=== PATIENT | male | born 1950 | race Caucasian/White ===

== ENCOUNTER 2020-04-14 05:29 | Inpatient (IN) | payer MEDICARE ==
[2020-04-14] MEDS ORDERED: Lactated Ringers 1,000 ML IV SCH (06:30)
[2020-04-14] MEDS: Nozin Nasal Sanitizer NASBOTH SCH ×2 (06:34→20:59)
[2020-04-14] MEDS ORDERED: Povidone-Iodine 10% Soln 118.25 ML Bottle ONE (06:48)
[2020-04-14] MEDS ORDERED: Propofol 200 MG/20 ML SDV ONE (07:21)
[2020-04-14] MEDS ORDERED: Midazolam 1 MG/ML 2 ML SDV ONE (07:21)
[2020-04-14] MEDS ORDERED: fentaNYL 100 MCG/2 ML SDV ONE (07:21)
[2020-04-14] MEDS ORDERED: ceFAZolin 2 GM in Premix Bag 1 BAG IV ONE (07:30)
[2020-04-14] MEDS ORDERED: Succinylcholine 200 MG/10 ML MDV ONE (08:00)
[2020-04-14] MEDS ORDERED: Glycopyrrolate 0.2 MG/ML 5 ML MDV ONE (08:00)
[2020-04-14] MEDS ORDERED: Dexamethasone 4 MG/ML SDV ONE (08:00)
[2020-04-14] MEDS ORDERED: Rocuronium 50 MG/5 ML Vial ONE (08:00)
[2020-04-14] MEDS ORDERED: Neostigmine Methylsulfate 1 MG/ML 5 ML Syringe ONE (08:00)
[2020-04-14] MEDS ORDERED: Ondansetron 4 MG/2 ML SDV ONE (08:00)
[2020-04-14] MEDS ORDERED: fentaNYL 250 MCG/5 ML SDV ONE (08:11)
[2020-04-14] MEDS ORDERED: Lactated Ringers 1,000 ML ONE (09:50)
[2020-04-14] MEDS ORDERED: Atropine 0.4 MG/ML SDV ONE (10:58)
[2020-04-14] MEDS ORDERED: Acetaminophen 325 MG Tab PO PRN (11:00)
[2020-04-14] MEDS ORDERED: Acetaminophen/HYDROcodone 325-5 MG Tab PO PRN (11:00)
[2020-04-14] MEDS ORDERED: hydrOXYzine HCL 100 MG/2 ML SDV IM ONE (11:16)
[2020-04-14] MEDS: Morphine 2 MG/ML SYRINGE IVPUSH PRN ×2 (12:17→13:21)
[2020-04-14] MEDS: Ketorolac 30 MG/ML SDV IVPUSH SCH ×2 (12:17→19:48)
--- NOTE | 2020-04-14 13:04 | CR ---
Knee 1V or 2V Lt CLINICAL HISTORY: Left total knee FINDINGS: Patient has a total knee arthroplasty. Components appear well seated. There has been previous distal femoral fracture with open reduction. Numerous the fixation plate screws are fractured. This is similar to the study from 2019 Impression: Total knee arthroplasty appears intact Previous femoral fracture with open reduction
[2020-04-14] MEDS: Acetaminophen/oxyCODONE 325-5 MG Tab PO PRN ×2 (13:20→17:22)
[2020-04-14] MEDS ORDERED: Gabapentin 300 MG Cap PO SCH ×2 (14:00→18:00)
[2020-04-14] MEDS ORDERED: CARBIDOPA PO SCH (14:00)
[2020-04-14] MEDS ORDERED: LEVODOPA PO SCH (14:00)
[2020-04-14] MEDS: Docusate Sodium 100 MG Cap PO SCH ×2 (16:21→21:01)
[2020-04-14] MEDS: ceFAZolin 1 GM in Premix Bag 1 BAG IV SCH ×2 (16:21→21:10)
[2020-04-14] MEDS: Sodium Chloride 0.9% 1,000 ML IV SCH (16:23)
[2020-04-14] MEDS ORDERED: Docusate Sodium 100 MG Cap PO SCH (21:00)
[2020-04-14] MEDS: CARBIDOPA PO SCH (21:02)
[2020-04-14] MEDS: LEVODOPA PO SCH (21:02)
[2020-04-14] MEDS: Melatonin 3 MG Tab PO SCH (21:02)
[2020-04-15] MEDS: Sodium Chloride 0.9% 1,000 ML IV SCH (01:20)
[2020-04-15] MEDS: Ketorolac 30 MG/ML SDV IVPUSH SCH ×3 (03:26→22:11)
[2020-04-15] MEDS: ceFAZolin 1 GM in Premix Bag 1 BAG IV SCH (05:27)
[2020-04-15] MEDS: LEVODOPA PO SCH ×5 (05:30→22:14)
[2020-04-15] MEDS: CARBIDOPA PO SCH ×5 (05:30→22:14)
[2020-04-15] MEDS: Acetaminophen/oxyCODONE 325-5 MG Tab PO PRN ×2 (07:42→15:54)
[2020-04-15] MEDS: Gabapentin 300 MG Cap PO SCH ×3 (07:47→22:15)
[2020-04-15] MEDS: Nozin Nasal Sanitizer NASBOTH SCH ×2 (08:59→22:12)
[2020-04-15] MEDS: atorvaSTATin 20 MG Tab PO SCH (09:00)
[2020-04-15] MEDS: Docusate Sodium 100 MG Cap PO SCH ×2 (09:00→22:12)
[2020-04-15] MEDS ORDERED: Pramipexole 0.5 MG Tab PO SCH (09:00)
[2020-04-15] MEDS: Enoxaparin 30 MG/0.3 ML Syringe SUBCUT SCH (09:00)
[2020-04-15] MEDS: buPROPion 100 MG Tab.SR PO SCH (09:01)
[2020-04-15] MEDS: Tamsulosin 0.4 MG Cap.ER PO SCH (09:01)
[2020-04-15] MEDS: PRAMIPEXOLE 1.5 MG PO SCH (09:01)
[2020-04-15] MEDS: Melatonin 3 MG Tab PO SCH (22:13)
[2020-04-16] MEDS: Ketorolac 30 MG/ML SDV IVPUSH SCH (05:33)
[2020-04-16] MEDS: CARBIDOPA PO SCH ×5 (05:37→20:43)
[2020-04-16] MEDS: LEVODOPA PO SCH ×5 (05:37→20:43)
[2020-04-16] MEDS: Gabapentin 300 MG Cap PO SCH ×3 (05:40→22:12)
[2020-04-16] MEDS: PRAMIPEXOLE 1.5 MG PO SCH ×3 (05:41→08:35)
[2020-04-16] MEDS ORDERED: CARBIDOPA PO SCH (06:00)
[2020-04-16] MEDS ORDERED: LEVODOPA PO SCH (06:00)
[2020-04-16] MEDS: Nozin Nasal Sanitizer NASBOTH SCH ×2 (08:28→20:41)
[2020-04-16] MEDS: Docusate Sodium 100 MG Cap PO SCH ×2 (08:29→20:42)
[2020-04-16] MEDS: Enoxaparin 30 MG/0.3 ML Syringe SUBCUT SCH (08:30)
[2020-04-16] MEDS: Tamsulosin 0.4 MG Cap.ER PO SCH (08:30)
[2020-04-16] MEDS: buPROPion 100 MG Tab.SR PO SCH (08:31)
[2020-04-16] MEDS: atorvaSTATin 20 MG Tab PO SCH (08:32)
[2020-04-16] MEDS: Acetaminophen/oxyCODONE 325-5 MG Tab PO PRN ×2 (09:23→16:26)
[2020-04-16] MEDS: Magnesium Hydroxide 400 MG/5 ML Susp 30 ML Cup PO PRN (09:23)
[2020-04-16] MEDS: Melatonin 3 MG Tab PO SCH (20:42)
[2020-04-17] MEDS: Acetaminophen/oxyCODONE 325-5 MG Tab PO PRN ×2 (03:56→09:52)
[2020-04-17] MEDS: LEVODOPA PO SCH ×3 (06:17→10:50)
[2020-04-17] MEDS: CARBIDOPA PO SCH ×3 (06:17→10:50)
[2020-04-17] MEDS: Gabapentin 300 MG Cap PO SCH (06:19)
[2020-04-17] MEDS: PRAMIPEXOLE 1.5 MG PO SCH (09:45)
[2020-04-17] MEDS: Docusate Sodium 100 MG Cap PO SCH (09:46)
[2020-04-17] MEDS: atorvaSTATin 20 MG Tab PO SCH (09:46)
[2020-04-17] MEDS: buPROPion 100 MG Tab.SR PO SCH (09:46)
[2020-04-17] MEDS: Nozin Nasal Sanitizer NASBOTH SCH (09:46)
[2020-04-17] MEDS: Tamsulosin 0.4 MG Cap.ER PO SCH (09:47)
[2020-04-17] MEDS: Magnesium Hydroxide 400 MG/5 ML Susp 30 ML Cup PO PRN (09:52)
[2020-04-17] MEDS: Enoxaparin 30 MG/0.3 ML Syringe SUBCUT SCH (10:50)
--- NOTE | 2020-04-23 19:37 | OR ---
DATE OF PROCEDURE: 04/14/2020 SURGEON: Yao Addison MD PREOPERATIVE DIAGNOSES: 1. Severe posttraumatic osteoarthritis, left knee. 2. Retained hardware, left femur. POSTOPERATIVE DIAGNOSES: 1. Severe posttraumatic osteoarthritis, left knee. 2. Retained hardware, left femur. PROCEDURES: Left total knee arthroplasty utilizing Pool Person[employer] components with a size 11 femur, H tibia, 14 mm CPS poly and a 38 mm patella. ANESTHESIA: Spinal with sedation. INDICATIONS: Mr. Lindo is a very pleasant 70-year-old gentleman with a history of severe trauma to his left leg and pelvis. 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 He has a blade plate in place along with multiple broken screws in the shaft of the femur. This results in blocking the intramedullary canal. He has severe posttraumatic arthritis with varus deformity and flexion contracture. Due to the hardware in place and inability to use the standard intramedullary guide, Pool PSI guides were created. These were used in making the initial cuts on the femur and tibia. DESCRIPTION OF PROCEDURE: After adequate anesthesia was obtained, the patient placed supine with a tourniquet about the left upper leg. Leg was prepped and draped in a sterile fashion. Leg was exsanguinated and tourniquet inflated to 300 mmHg pressure. Anterior incision was made incorporating a previous scar. Was taken down through the subcutaneous tissues and a medial parapatellar arthrotomy was performed. Soft tissues were cleared from the superior aspect of the femur to allow placement of the distal femoral cutting guide. The patella was partially everted. Posterior aspect was resected with an oscillating saw. This allowed easier mobilization. Once the PSI cutting jig could be placed securely in position, 2 pins were placed anterior to posterior, and 2 drill holes were then made in the distal femur through the appropriate guides. Distal cutting jig was then placed and the distal femur was cut. The guides for the 4-in-1 cutting jig was then placed through the previously drilled holes. This resulted in cutting jig too far anterior with no anterior bone resection. Additional drill holes were then placed more posterior and the distal femur jig was downsized from a 12 to an 11. This resulted in resection of the lateral flare of the trochlea to the midportion of the groove; however, no resection was noted medially. The remaining posterior and chamfer cuts were made. Drill holes were placed for the trial. Significant bone was removed from the distal femur as well as the posterior condyles. This extended up into some of the deformity and malunion of the posterior femur. The soft tissues were then cleared from the tibial plateau location for the PSI tibial jig. Once this was accomplished, the jig was placed and drill holes were made and pins secured. Proximal tibial resection guide was placed over the pins and the proximal tibia was resected. Significant sclerosis of the bone was noted. This portion was removed. The leg was extended and remaining meniscus and soft tissues were excised. Trial femur was placed. This was located just anterior to the blade plate entry portion superolaterally in the femur. Intercondylar notch was then cut for a posterior cruciate sacrificing component. This resection encountered one of the distal screws and a portion of the blade plate in the intercondylar notch. With the trial in place and the insert for the posterior stabilizing section locked into position, the implant did not impinge against the old hardware. The tibial guide was placed along with a trial polyethylene. This was used to confirm the centering and rotation of the tibial component. Guide was pinned in position. Canal was drilled and fins were then cut. Trial reduction was then made. This revealed some external rotation in flexion with slight flexion instability. Release of a portion of the popliteus tendon was done, which significantly improved this. Standard posterior stabilizing polyethylene was changed to a CPS polyethylene which also significantly improved stability. The patella was resurfaced with a 38 mm button and this tracked quite well with no lateral release. The trials were removed. The portion of the medial trochlea which was not resected was decorticated with a combination of osteotome and rongeur. A portion of the bone which had been resected with the cuts was chosen for best fit and contoured to fit into the gap beneath the anterior portion of the component. The femoral trial was replaced and the bone graft fit very nicely wedging into the medial aspect. Trial was removed and bone graft was kept moist on the back table and the bone surfaces were irrigated with pulse lavage. Components were cemented in place along with the bone graft under the anterior edge of the femoral prosthesis medially. This was tamped into position with very good fit. The knee was held in full extension with the trial polyethylene until cement cured. articular trials were used up to a size 14, which provided good balance and full extension. Trial was removed. The knee was irrigated once again. Polyethylene was locked into position and the knee was thoroughly irrigated with pulse lavage. This was followed by a dilute Betadine irrigation which was left in place for just over 2.5 minutes. This was then irrigated out with the pulse lavage and the knee was closed with #2 Ethibond in interrupted fashion. After this was closed, the knee was taken through range of motion. It showed no excess tension on the repair and flexion to just past 120 degrees. Full extension was obtained. The skin was then closed with 2-0 Vicryl and a running 3-0 Monocryl. Steri-Strips were applied. Light compressive dressing was then placed. The patient tolerated the procedure very well. There were no complications. He was taken from the operating room in stable condition. Yao Addison MD /[id number] MTDMarci
== END 2020-04-17 12:45 | disposition home or self-care (01) | DRG 554 ==
LOC: JP.SDS 05:29 → JP.MS 11:00 → JP.SDS 11:01 → JP.MS 11:01
PROVIDERS: ADMIT Specialist; ATTEND Specialist
DX: M17.12 Unilateral primary osteoarthritis, left knee (principal); E66.9 Obesity, unspecified; E78.5 Hyperlipidemia, unspecified; E55.9 Vitamin D deficiency, unspecified; D64.9 Anemia, unspecified; M54.9 Dorsalgia, unspecified; G20 Parkinson's disease; M47.812 Spondylosis without myelopathy or radiculopathy, cervical region; G47.33 Obstructive sleep apnea (adult) (pediatric); R53.1 Weakness; M17.32 Unilateral post-traumatic osteoarthritis, left knee; T84.89XA Other specified complication of internal orthopedic prosthetic devices, implants and grafts, initial encounter; Z68.37 Body mass index [BMI] 37.0-37.9, adult; Z79.82 Long term (current) use of aspirin; Z79.899 Other long term (current) drug therapy; Z88.2 Allergy status to sulfonamides; Z98.890 Other specified postprocedural states; Z87.891 Personal history of nicotine dependence
CPT/HCPCS: 27447 ×2; 36415; 86850; 86900; 86901; A9270; C1713; C1776 ×4; J0330; J0461; J0690; J1100; J2250; J2405; J2704; J2710; J3010 ×2; J3490; J7120 ×2; 73560-26-LT; 73560-LT; 85027; 97110-GP; 97116-GP; 97162-GP; 97530-GP; 97535-GP; J1650; J1885; J2270; J3410; J7030

== ENCOUNTER 2021-01-12 05:32 | Inpatient (IN) | payer MEDICARE ==
[2021-01-12] MEDS ORDERED: Lactated Ringers 1,000 ML IV SCH (06:00)
[2021-01-12] MEDS ORDERED: Nozin Nasal Sanitizer NASBOTH ONE (06:30)
[2021-01-12] MEDS ORDERED: Povidone-Iodine 10% Soln 118.25 ML Bottle ONE (06:33)
[2021-01-12] MEDS ORDERED: Rocuronium 50 MG/5 ML Vial ONE ×2 (07:27→09:26)
[2021-01-12] MEDS ORDERED: Propofol 200 MG/20 ML SDV ONE (07:27)
[2021-01-12] MEDS ORDERED: Ondansetron 4 MG/2 ML SDV ONE (07:27)
[2021-01-12] MEDS ORDERED: Glycopyrrolate 0.2 MG/ML 5 ML MDV ONE (07:27)
[2021-01-12] MEDS ORDERED: Dexamethasone 4 MG/ML SDV ONE (07:27)
[2021-01-12] MEDS ORDERED: Succinylcholine 200 MG/10 ML MDV ONE (07:27)
[2021-01-12] MEDS ORDERED: Neostigmine Methylsulfate 1 MG/ML 5 ML Syringe ONE (07:27)
[2021-01-12] MEDS ORDERED: fentaNYL 250 MCG/5 ML SDV ONE ×2 (07:28→08:14)
[2021-01-12] MEDS ORDERED: ceFAZolin 2 GM in Premix Bag 1 BAG IV ONE (07:30)
[2021-01-12] MEDS ORDERED: Tranexamic Acid 1,000 MG in Sodium Chloride 0.9% 50 ML IV ONE (07:30)
[2021-01-12] MEDS ORDERED: Lactated Ringers 1,000 ML ONE (09:43)
[2021-01-12] MEDS ORDERED: Morphine 2 MG/ML SYRINGE SUBCUT PRN (10:27)
[2021-01-12] MEDS ORDERED: Ondansetron 4 MG/2 ML SDV IVPUSH PRN (10:27)
[2021-01-12] MEDS ORDERED: Acetaminophen 325 MG Tab PO PRN (10:27)
[2021-01-12] MEDS ORDERED: Magnesium Hydroxide 400 MG/5 ML Susp 30 ML Cup PO PRN (10:27)
[2021-01-12] MEDS ORDERED: ceFAZolin 1 GM in Sodium Chloride 0.9% 50 ML IV SCH (10:30)
[2021-01-12] MEDS ORDERED: Midodrine 5 MG Tab PO SCH (10:45)
[2021-01-12] MEDS ORDERED: [UNRECOGNIZED DRUG - OTHER] PO SCH (11:00)
[2021-01-12] MEDS ORDERED: LEVODOPA PO SCH (11:00)
[2021-01-12] MEDS ORDERED: Non-Formulary Medication 1 Each (Carbidopa/Levodopa [Rytary Er 48.75 Mg-195 Mg Cap] 1 EACH PO SCH (11:00)
[2021-01-12] MEDS ORDERED: CARBIDOPA PO SCH (11:00)
[2021-01-12] MEDS ORDERED: Morphine 2 MG/ML SYRINGE IV PRN (12:19)
[2021-01-12] MEDS: Midodrine 5 MG Tab PO SCH (12:28)
[2021-01-12] MEDS ORDERED: RYTARY PO ONE (13:30)
[2021-01-12] MEDS: Gabapentin 300 MG Cap PO SCH ×2 (13:32→20:07)
[2021-01-12] MEDS: Pramipexole 0.5 MG Tab PO SCH (13:32)
[2021-01-12] MEDS ORDERED: PRAMIPEXOLE DI HCL 1 MG PO SCH (14:00)
[2021-01-12] MEDS ORDERED: Non-Formulary Medication 1 Each (Gabapentin [Neurontin] 600 MG Tablet) PO SCH (14:00)
--- NOTE | 2021-01-12 14:29 | CR ---
Pelvis 1V or 2V CLINICAL HISTORY: Status post CLAIRE FINDINGS: Patient has had previous pelvic fracture and repair. There has been interval placement of a total left hip arthroplasty. Components appear well seated. IMPRESSION: Previous left pelvic fracture with open reduction Recent total left hip arthroplasty. Components appear well seated
[2021-01-12] MEDS: Sodium Chloride 0.9% 1,000 ML IV SCH (15:26)
[2021-01-12] MEDS: ceFAZolin 1 GM in Premix Bag 1 BAG IV SCH (15:38)
[2021-01-12] MEDS: RYTARY PO SCH ×2 (17:10)
[2021-01-12] MEDS: Acetaminophen/HYDROcodone 325-5 MG Tab PO PRN (17:47)
[2021-01-12] MEDS: Melatonin 3 MG Tab PO SCH (20:06)
[2021-01-12] MEDS: Carbidopa/Levodopa 50-200 MG Tab.ER PO SCH (20:08)
[2021-01-12] MEDS ORDERED: Carbidopa/Levodopa 50-200 MG Tab.ER PO SCH (21:00)
[2021-01-12] MEDS: Nozin Nasal Sanitizer NASBOTH SCH (22:17)
[2021-01-13] MEDS: ceFAZolin 1 GM in Premix Bag 1 BAG IV SCH ×2 (00:06→08:05)
[2021-01-13] MEDS: Acetaminophen/oxyCODONE 325-5 MG Tab PO PRN ×3 (01:41→08:04)
[2021-01-13] MEDS: RYTARY PO SCH ×6 (05:07→17:25)
[2021-01-13] MEDS: Midodrine 5 MG Tab PO SCH ×2 (05:08→11:13)
[2021-01-13] MEDS: Pramipexole 0.5 MG Tab PO SCH ×2 (05:08→14:28)
[2021-01-13] MEDS ORDERED: Non-Formulary Medication 1 Each (Midodrine [Midodrine] 10 MG Tablet) PO SCH (06:00)
[2021-01-13] MEDS ORDERED: Non-Formulary Medication 1 Each (Carbidopa/Levodopa [Rytary Er 48.75 Mg-195 Mg Cap] 1 EACH PO SCH (06:00)
--- NOTE | 2021-01-13 08:38 | PCM.SURGPN ---
- General Info Date of Service: 01/13/21 Date of Surgery/Procedure: 01/12/21 POD#: 1 Post-Op Diagnosis: left hip osteoarthritis Functional Status: Reports: Pain Controlled, Tolerating Diet, Incentive Spirometry - Review of Systems General: Reports: No Symptoms HEENT: Reports: No Symptoms Pulmonary: Reports: No Symptoms Cardiovascular: Reports: No Symptoms Gastrointestinal: Reports: No Symptoms Genitourinary: Reports: No Symptoms Musculoskeletal: Reports: Leg Pain (left ), Joint Pain (left hip ) Skin: Reports: No Symptoms Neurological: Reports: Confusion Psychiatric: Reports: Confusion - Patient Data Vitals - Most Recent: Last Vital Signs Temp 98.2 F 01/13/21 08:09 Pulse 82 01/13/21 08:09 Resp 16 01/13/21 08:09 BP 70/45 L 01/13/21 08:09 Pulse Ox 90 L 01/13/21 08:09 Weight - Most Recent: 270 lb I&O - Last 24 Hours: Intake & Output 01/12/21 01/13/21 01/13/21 22:59 06:59 14:59 Intake Total 995 2031 Output Total 95 375 Balance 4E 1656 Lab Results Last 24 Hrs: Laboratory Results - last 24 hr 01/13/21 Range/Units 05:25 WBC 5.3 (4.5-11.0) K/uL RBC 3.75 L (4.30-5.90) M/uL Hgb 11.3 L (12.0-15.0) g/dL Hct 34.7 L (40.0-54.0) % MCV 93 (80-98) fL MCH 30 (27-31) pg MCHC 33 (32-36) % Plt Count 204 (150-400) K/uL Med Orders - Current: Current Medications Acetaminophen (Acetaminophen 325 Mg Tab) 650 mg PO Q4H PRN PRN Reason: Pain/Fever Hydrocodone Bitart/Acetaminophen (Acetaminophen/Hydrocodone 325-5 Mg Tab) 1 tab PO Q4H PRN PRN Reason: Pain Last Admin: 01/12/21 17:47 Dose: 1 tab Documented by: Atorvastatin Calcium (Atorvastatin 20 Mg Tab) 20 mg PO DAILY MICHELLE Bandage/Support Products (Nozin Nasal Hand Paster) 1 applic NASBOTH BID MICHELLE Stop: 01/18/21 21:01 Last Admin: 01/12/21 22:17 Dose: Not Given Documented by: Bupropion HCl (Bupropion 100 Mg Tab.Sr) 100 mg PO DAILY [facility] Carbidopa/Levodopa (Carbidopa/Levodopa 50-200 Mg Tab.Er) 1 tab PO BEDTIME [facility] Last Admin: 01/12/21 20:08 Dose: 1 tab Documented by: Docusate Sodium (Docusate Sodium 100 Mg Cap) 100 mg PO DAILY [facility] Enoxaparin Sodium (Enoxaparin 30 Mg/0.3 Ml Syringe) 30 mg SUBCUT DAILY [facility] Gabapentin (Gabapentin 300 Mg Cap) 600 mg PO TID [facility] Last Admin: 01/12/21 20:07 Dose: 600 mg Documented by: Sodium Chloride (Normal Saline) 1,000 mls @ 125 mls/hr IV ASDIRECTED [facility] Last Admin: 01/12/21 15:26 Dose: 125 mls/hr Documented by: Cefazolin Sodium/Dextrose 1 gm (/ Premix) 50 mls @ 100 mls/hr IV Q8H [facility] Stop: 01/13/21 08:29 Last Admin: 01/13/21 08:05 Dose: 100 mls/hr Documented by: Magnesium Hydroxide (Magnesium Hydroxide 400 Mg/5 Ml Susp 30 Ml Cup) 30 ml PO Q6H PRN PRN Reason: Stool Softener Melatonin (Melatonin 3 Mg Tab) 9 mg PO BEDTIME [facility] Last Admin: 01/12/21 20:06 Dose: 9 mg Documented by: Midodrine (Midodrine 5 Mg Tab) 5 mg PO DAILY@1200 [facility] Last Admin: 01/12/21 12:28 Dose: 5 mg Documented by: Midodrine (Midodrine 5 Mg Tab) 10 mg PO 0600 [facility] Last Admin: 01/13/21 05:08 Dose: 10 mg Documented by: Morphine Sulfate (Morphine 2 Mg/Ml Syringe) 1 mg IV Q1H PRN PRN Reason: Breakthrough Pain Last Admin: 01/12/21 12:24 Dose: 1 mg Documented by: Rytary Er 36.25 Mg- (145 Mg Ptom) 1 tab PO TID@06,11,17 [facility] Last Admin: 01/13/21 05:07 Dose: 1 tab Documented by: Rytary Er 48.75 Mg- (195 Mg Ptom) 1 cap PO DAILY@0600 [facility] Last Admin: 01/13/21 05:07 Dose: 1 cap Documented by: Rytary Er 48.75 Mg- (195 Mg Ptom) 0 tab PO BID@ [facility] Last Admin: 01/12/21 17:10 Dose: 2 tab Documented by: Ondansetron HCl (Ondansetron 4 Mg/2 Ml Sdv) 4 mg IVPUSH Q6H PRN PRN Reason: Nausea/Vomiting Oxycodone/Acetaminophen (Acetaminophen/Oxycodone 325-5 Mg Tab) 1 - 2 tab PO Q4H PRN PRN Reason: Pain Last Admin: 01/13/21 08:04 Dose: 2 tab Documented by: Pramipexole Dihydrochloride (Pramipexole 0.5 Mg Tab) 1 mg PO BID@ [facility] Last Admin: 01/13/21 05:08 Dose: 1 mg Documented by: Tamsulosin HCl (Tamsulosin 0.4 Mg Cap.Er) 0.4 mg PO DAILY [facility] Discontinued Medications Bandage/Support Products (Nozin Nasal Hand Paster) 1 applic NASBOTH ONETIME ONE Stop: 01/12/21 06:31 Last Admin: 01/12/21 06:55 Dose: 3 swab Documented by: Carbidopa/Levodopa (Carbidopa/Levodopa 50-200 Mg Tab.Er) 1 tab PO BEDTIME [facility] Dexamethasone (Dexamethasone 4 Mg/Ml Sdv) Confirm Administered Dose 4 mg .ROUTE .STK-MED ONE Stop: 01/12/21 07:28 Docusate Sodium (Docusate Sodium 100 Mg Cap) 100 mg PO DAILY [facility] Enoxaparin Sodium (Enoxaparin 30 Mg/0.3 Ml Syringe) 30 mg SUBCUT DAILY [facility] Fentanyl (Fentanyl 250 Mcg/5 Ml Sdv) Confirm Administered Dose 250 mcg .ROUTE .STK-MED ONE Stop: 01/12/21 07:29 Fentanyl (Fentanyl 250 Mcg/5 Ml Sdv) Confirm Administered Dose 250 mcg .ROUTE .STK-MED ONE Stop: 01/12/21 08:15 Glycopyrrolate (Glycopyrrolate 0.2 Mg/Ml 5 Ml Mdv) Confirm Administered Dose 1 mg .ROUTE .STK-MED ONE Stop: 01/12/21 07:28 Cefazolin Sodium/Dextrose 2 gm (/ Premix) 50 mls @ 100 mls/hr IV ONETIME ONE Stop: 01/12/21 07:59 Last Admin: 01/12/21 08:24 Dose: 100 mls/hr Documented by: Lactated Ringer's (Ringers, Lactated) 1,000 mls @ 75 mls/hr IV ASDIRECTED [facility] Last Admin: 01/12/21 06:55 Dose: 75 mls/hr Documented by: Tranexamic Acid 1,000 mg/ (Sodium Chloride) 60 mls @ 240 mls/hr IV ONETIME ONE Stop: 01/12/21 07:44 Last Admin: 01/12/21 08:26 Dose: 240 mls/hr Documented by: Lactated Ringer's (Ringers, Lactated) Confirm Administered Dose 1,000 mls @ as directed .ROUTE .STK-MED ONE Stop: 01/12/21 09:44 Cefazolin Sodium 1 gm/ Sodium (Chloride) 50 mls @ 200 mls/hr IV Q8H [facility] Stop: 01/13/21 02:44 Last Admin: 01/12/21 21:23 Dose: Not Given Documented by: Midodrine (Midodrine 5 Mg Tab) 5 mg PO .NOON [facility] Morphine Sulfate (Morphine 2 Mg/Ml Syringe) 1 mg SUBCUT Q1H PRN PRN Reason: Breakthrough Pain Neostigmine Methylsulfate (Neostigmine Methylsulfate 1 Mg/Ml 5 Ml Syringe) Confirm Administered Dose 5 mg .ROUTE .STK-MED ONE Stop: 01/12/21 07:28 Non-Formulary Medication (Atorvastatin [Lipitor]) 20 mg PO DAILY [facility] Non-Formulary Medication (Carbidopa/Levodopa [Rytary Er 36.25 Mg-145 Mg Cap]) 1 tab PO TID@, [facility] Last Admin: 01/12/21 21:23 Dose: Not Given Documented by: Non-Formulary Medication (Carbidopa/Levodopa [Rytary Er 48.75 Mg-195 Mg Cap]) 1 cap PO DAILY@0600 [facility] Non-Formulary Medication (Carbidopa/Levodopa [Rytary Er 48.75 Mg-195 Mg Cap]) 2 tab PO BID@ [facility] Last Admin: 01/12/21 21:24 Dose: Not Given Documented by: Non-Formulary Medication (Gabapentin [Neurontin]) 600 mg PO TID [facility] Non-Formulary Medication (Melatonin [Melatonin]) 10 mg PO BEDTIME [facility] Non-Formulary Medication (Midodrine [Midodrine]) 10 mg PO 0600 [facility] Non-Formulary Medication (Pramipexole Di-Hcl [Mirapex]) 1 mg PO BID@ [facility] Rytary Er 48.75 Mg- (195 Mg Ptom) 0 tab PO ONETIME ONE Stop: 01/12/21 13:31 Last Admin: 01/12/21 13:31 Dose: 2 tab Documented by: Ondansetron HCl (Ondansetron 4 Mg/2 Ml Sdv) Confirm Administered Dose 4 mg .ROUTE .STK-MED ONE Stop: 01/12/21 07:28 Povidone Iodine (Povidone-Iodine 10% Soln 118.25 Ml Bottle) Confirm Administered Dose 1 ml .ROUTE .STK-MED ONE Stop: 01/12/21 06:34 Last Admin: 01/12/21 08:43 Dose: 15 ml Documented by: Propofol (Propofol 200 Mg/20 Ml Sdv) Confirm Administered Dose 200 mg .ROUTE .STK-MED ONE Stop: 01/12/21 07:28 Rocuronium [place] (Rocuronium 50 Mg/5 Ml Vial) Confirm Administered Dose 50 mg .ROUTE .STK-MED ONE Stop: 01/12/21 07:28 Rocuronium [place] (Rocuronium 50 Mg/5 Ml Vial) Confirm Administered Dose 50 mg .ROUTE .STK-MED ONE Stop: 01/12/21 09:27 Succinylcholine Chloride (Succinylcholine 200 Mg/10 Ml Mdv) Confirm Administered Dose 200 mg .ROUTE .STK-MED ONE Stop: 01/12/21 07:28 Tamsulosin HCl (Tamsulosin 0.4 Mg Cap.Er) 0.4 mg PO DAILY MICHELLE - Exam Wound/Incisions: Healing Well, Dressing Dry and Intact, No Drainage Quality Assessment: Urine Catheter General: Alert, Cooperative, No Acute Distress Extremities: Pedal Edema (bilateral, lymphedema per baseline ), Leg Pain (left ), Limited Range of Motion, Increased Warmth (mild, left hip) Skin: Dry, Intact Neurological: No New Focal Deficit Psy/Mental Status: Alert, Normal Mood Sepsis Event Note - Evaluation Sepsis Screening Result: No Definite Risk - Focused Exam Vital Signs: Vital Signs Temp Pulse Resp BP Pulse Ox 01/13/21 08:09 98.2 F 82 16 70/45 L 90 L 01/13/21 08:07 92 L 01/13/21 05:12 98.0 F 16 112/64 92 L 01/13/21 02:43 96 01/13/21 01:00 16 108/51 L 96 01/12/21 23:00 97.1 F 85 14 95/56 L 97 - Problem List & Annotations (1) Status post total hip replacement, left SNOMED Code(s): 977998928747, 609414545708 Code(s): Z96.642 - PRESENCE OF LEFT ARTIFICIAL HIP JOINT Status: Acute Current Visit: Yes (2) Postoperative anemia SNOMED Code(s): 864954485, 112504204 Code(s): D64.9 - ANEMIA, UNSPECIFIED Status: Acute Current Visit: Yes - Problem List Review Problem List Initiated/Reviewed/Updated: Yes - My Orders Last 24 Hours: Active Orders 24 hr Category Date Time Status Patient Status [ADT] Routine ADT 01/12/21 10:27 Active Ambulate [RC] PER UNIT ROUTINE Care 01/12/21 10:27 Active Antiembolic Devices [RC] .Routine Care 01/12/21 10:28 Active Head of Bed Elevation [RC] ASDIRECTED Care 01/12/21 10:27 Active Intake and Output [RC] PER UNIT ROUTINE Care 01/12/21 10:27 Active Neurovascular Check [RC] BID Care 01/12/21 10:27 Active Notify Provider Intake and Out [RC] ASDIRECTED Care 01/12/21 10:27 Active Notify Provider Vital Signs [RC] ASDIRECTED Care 01/12/21 10:27 Active Oxygen Therapy [RC] PRN Care 01/12/21 10:27 Active Pneumonia Education [RC] UPON Care 01/12/21 10:27 Active Pulse Oximetry [RC] INTERMITTENT Care 01/12/21 10:27 Active RT Incentive Spirometry [RC] Q1HWA Care 01/12/21 10:27 Active Up to Chair [RC] QID Care 01/12/21 10:27 Active VTE/DVT Education [RC] Click to Edit Care 01/12/21 10:28 Active Vital Signs [RC] PER UNIT ROUTINE Care 01/12/21 10:27 Active Wound Care [RC] Q12H Care 01/12/21 10:27 Active Consult to Case Management/Family Practice Md [CONS] Cons 01/12/21 10:27 Active Routine OT Evaluation and Treatment [CONS] Routine Cons 01/12/21 10:31 Active PT Evaluation and Treatment [CONS] Routine Cons 01/12/21 10:27 Active PT Evaluation and Treatment [CONS] Routine Cons 01/12/21 10:27 Active Regular Diet [DIET] Diet 01/12/21 Lunch Active Acetaminophen [TylenoL] Med 01/12/21 10:27 Active 650 mg PO Q4H PRN Acetaminophen/HYDROcodone [[place] 325-5 MG] Med 01/12/21 10:27 Active 1 tab PO Q4H PRN Acetaminophen/oxyCODONE [Percocet 325-5 MG] Med 01/12/21 10:33 Active 1 - 2 tab PO Q4H PRN Carbidopa/Levodopa [Rytary Er 36.25 Mg-145 Mg Cap] Med 01/12/21 12:15 Active 1 tab PO TID@06,11,17 Carbidopa/Levodopa [Rytary Er 48.75 Mg-195 Mg Cap] Med 01/12/21 17:00 Active 0 tab PO BID@11,17 Carbidopa/Levodopa [Rytary Er 48.75 Mg-195 Mg Cap] Med 01/13/21 06:00 Active 1 cap PO DAILY@0600 Carbidopa/Levodopa [Sinemet Cr 50-200 mg] Med 01/12/21 21:00 Active 1 tab PO BEDTIME Docusate Sodium [Colace] Med 01/13/21 09:00 Active 100 mg PO DAILY Enoxaparin [Lovenox] Med 01/13/21 09:00 Active 30 mg SUBCUT DAILY Gabapentin [Neurontin] Med 01/12/21 14:00 Active 600 mg PO TID Magnesium Hydroxide [Milk of Magnesia] Med 01/12/21 10:27 Active 30 ml PO Q6H PRN Melatonin Med 01/12/21 21:00 Active 9 mg PO BEDTIME Midodrine Med 01/13/21 06:00 Active 10 mg PO 0600 Midodrine Med 01/12/21 12:15 Active 5 mg PO DAILY@1200 Morphine Med 01/12/21 12:19 Active 1 mg IV Q1H PRN Nozin [ Nasal Hand Paster] Med 01/12/21 21:00 Active 1 applic NASBOTH BID Ondansetron [Zofran] Med 01/12/21 10:27 Active 4 mg IVPUSH Q6H PRN Pramipexole [Mirapex] Med 01/12/21 14:00 Active 1 mg PO BID@, Sodium Chloride 0.9% [Normal Saline] 1,000 ml Med 01/12/21 10:30 Active IV ASDIRECTED Tamsulosin [Flomax] Med 01/13/21 09:00 Active 0.4 mg PO DAILY atorvaSTATin [Lipitor] Med 01/13/21 09:00 Active 20 mg PO DAILY buPROPion [Wellbutrin SR] Med 01/13/21 09:00 Active 100 mg PO DAILY ceFAZolin [Ancef 1 GM/50 ML] 1 gm Med 01/12/21 16:00 Active Premix Bag 1 bag IV Q8H [facility] for Inpatients [OM.PC] Routine Oth 01/12/21 10:27 Ordered DVT/VTE Prophylaxis Reflex [OM.PC] Routine Oth 01/12/21 10:27 Ordered Ice Therapy [OM.PC] Per Unit Routine Oth 01/12/21 10:27 Ordered Oral Care [OM.PC] Routine Oth 01/12/21 10:27 Ordered Sequential Compression Device [OM.PC] Routine Oth 01/12/21 10:27 Ordered Sequential Compression Device [OM.PC] Routine Oth 01/12/21 10:27 Ordered Weight bearing status [OM.PC] Routine Oth 01/12/21 10:27 Ordered Resuscitation Status Routine Resus Stat 01/12/21 10:27 Ordered Medication Orders Acetaminophen (Acetaminophen 325 Mg Tab) 650 mg PO Q4H PRN PRN Reason: Pain/Fever Hydrocodone Bitart/Acetaminophen (Acetaminophen/Hydrocodone 325-5 Mg Tab) 1 tab PO Q4H PRN PRN Reason: Pain Last Admin: 01/12/21 17:47 Dose: 1 tab Documented by: [id number] Atorvastatin Calcium (Atorvastatin 20 Mg Tab) 20 mg PO DAILY [facility] Bandage/Support Products (Nozin Nasal Hand Paster) 1 applic NASBOTH BID MICHELLE Stop: 01/18/21 21:01 Last Admin: 01/12/21 22:17 Dose: Not Given Documented by: NATALIE Bupropion HCl (Bupropion 100 Mg Tab.Sr) 100 mg PO DAILY [facility] Carbidopa/Levodopa (Carbidopa/Levodopa 50-200 Mg Tab.Er) 1 tab PO BEDTIME [facility] Last Admin: 01/12/21 20:08 Dose: 1 tab Documented by: NATALIE Docusate Sodium (Docusate Sodium 100 Mg Cap) 100 mg PO DAILY [facility] Enoxaparin Sodium (Enoxaparin 30 Mg/0.3 Ml Syringe) 30 mg SUBCUT DAILY [facility] Gabapentin (Gabapentin 300 Mg Cap) 600 mg PO TID [facility] Last Admin: 01/12/21 20:07 Dose: 600 mg Documented by: Admin: 01/12/21 13:32 Dose: 600 mg Documented by: ROHITH Sodium Chloride (Normal Saline) 1,000 mls @ 125 mls/hr IV ASDIRECTED [facility] Last Admin: 01/12/21 15:26 Dose: 125 mls/hr Documented by: NORBERTO Cefazolin Sodium/Dextrose 1 gm (/ Premix) 50 mls @ 100 mls/hr IV Q8H [facility] Stop: 01/13/21 08:29 Last Admin: 01/13/21 08:05 Dose: 100 mls/hr Documented by: Infusion: 01/13/21 00:36 Dose: 100 mls/hr Documented by: Admin: 01/13/21 00:06 Dose: 100 mls/hr Documented by: Infusion: 01/12/21 16:08 Dose: 100 mls/hr Documented by: Admin: 01/12/21 15:38 Dose: 100 mls/hr Documented by: ROHITH Magnesium Hydroxide (Magnesium Hydroxide 400 Mg/5 Ml Susp 30 Ml Cup) 30 ml PO Q6H PRN PRN Reason: Stool Softener Melatonin (Melatonin 3 Mg Tab) 9 mg PO BEDTIME [facility] Last Admin: 01/12/21 20:06 Dose: 9 mg Documented by: NATALIE Midodrine (Midodrine 5 Mg Tab) 5 mg PO DAILY@1200 [facility] Last Admin: 01/12/21 12:28 Dose: 5 mg Documented by: ROHITH Midodrine (Midodrine 5 Mg Tab) 10 mg PO 0600 [facility] Last Admin: 01/13/21 05:08 Dose: 10 mg Documented by: NATALIE Morphine Sulfate (Morphine 2 Mg/Ml Syringe) 1 mg IV Q1H PRN PRN Reason: Breakthrough Pain Last Admin: 01/12/21 12:24 Dose: 1 mg Documented by: ROHITH Rytary Er 36.25 Mg- (145 Mg Ptom) 1 tab PO TID@, [facility] Last Admin: 01/13/21 05:07 Dose: 1 tab Documented by: Admin: 01/12/21 17:10 Dose: 1 tab Documented by: ROHITH Rytary Er 48.75 Mg- (195 Mg Ptom) 1 cap PO DAILY@599 [facility] Last Admin: 01/13/21 05:07 Dose: 1 cap Documented by: NATALIE Rytary Er 48.75 Mg- (195 Mg Ptom) 0 tab PO BID@ [facility] Last Admin: 01/12/21 17:10 Dose: 2 tab Documented by: ROHITH Ondansetron HCl (Ondansetron 4 Mg/2 Ml Sdv) 4 mg IVPUSH Q6H PRN PRN Reason: Nausea/Vomiting Oxycodone/Acetaminophen (Acetaminophen/Oxycodone 325-5 Mg Tab) 1 - 2 tab PO Q4H PRN PRN Reason: Pain Last Admin: 01/13/21 08:04 Dose: 2 tab Documented by: Admin: 01/13/21 02:15 Dose: 1 tab Documented by: Admin: 01/13/21 01:41 Dose: 1 tab Documented by: NATALIE Pramipexole Dihydrochloride (Pramipexole 0.5 Mg Tab) 1 mg PO BID@ [facility] Last Admin: 01/13/21 05:08 Dose: 1 mg Documented by: Admin: 01/12/21 13:32 Dose: 1 mg Documented by: ROHITH Tamsulosin HCl (Tamsulosin 0.4 Mg Cap.Er) 0.4 mg PO DAILY [facility] - Assessment Assessment (Free Text/Narrative):: Patient is a pleasant 71-year-old male, status post left total hip arthroplasty, postop day #1. No acute events overnight. Patient remained hemodynamically stable. Blood pressures have fluctuated following surgery, having both hypertensive and hypotensive readings. Patient's spouse reports this fluctuation in blood pressure is normal for him with his Parkinsons medications. Will typically run hypotensive at home, does take midodrine. Patient denied feeling symptomatic of hypotension. Does endorse confusion overnight with timeline; thought he had been in the hospital for 3 days. Upon rounding this morning, patient is alert and oriented to self, place, and time. Patient denied subjective fevers, chills, dizziness, dyspnea, nor fatigue. Asymptomatic and stable post-operative anemia on POD#1 with HgB at 11.3. Patient reports pain in left hip is mild; endorsed ache in hip at rest in bed which is tolerable with current pain regimen. Has been tolerating regular diet well, no nausea nor emesis. Participated in physical therapy yesterday, did exercises and stretches for bilateral LEs in bed. Cisneros remains in place due to limited ambulation abilities at this time. Bilateral lymphedema per baseline, ALESSIA wraps on bilateral LEs. Patient requiring inpatient status at this time to provide additional therapy services to progress transfer abilities from bed to chair and ambulation abilities to be safe for discharge to home. Also requiring optimization of pain control with PO medications prior to discharge. Exam: Left hip dressing dry and intact. No drainage, no surrounding erythema. Very mild warmth to touch of left hip. Bilateral lower extremity lymphedema per patient's baseline. Tibialis posterior pulse appreciated, 1+. Dorsiflexion, 2+ out of 5. Plantar flexion, 3 out of 5. Plan: * Anticipate participation in PT and OT daily while in the hospital. WBAT on LLE. Up to chair with all meals. * Pain control: continue with current regimen. * DVT/VTE prophylaxis: 30 mg Lovenox subcutaneous daily for chemical prophylaxis. Unable to wear bilateral SCDs per patient's baseline with lymphedema. * Postoperative anemia stable at this time. Will watch for symptoms and recheck CBC if patient becomes symptomatic. * Blood pressures: Continue to monitor postoperative vitals every 4 hrs. Continue with home Midodrine doses. Continue with maintenance fluids. * Cisneros catheter may be discontinued as ambulation abilities improve. * Dressing change to be performed on POD#2 by orthopedic provider. * Suspect overnight confusion due to a combination of parkinsons, anesthesia, and . Will continue to monitor for any further confusion. * Anticipate discharge to home with home health services when medically stable, ambulation abilities improve, and pain is controlled with PO medications. Patient has used [facility] in the past and enjoyed their services, would like to use them again. Communicated this to certified financial planner.
[2021-01-13] MEDS ORDERED: Tamsulosin 0.4 MG Cap.ER PO SCH (09:00)
[2021-01-13] MEDS ORDERED: Enoxaparin 30 MG/0.3 ML Syringe SUBCUT SCH (09:00)
[2021-01-13] MEDS ORDERED: Non-Formulary Medication 1 Each (Atorvastatin [Lipitor] 40 MG Tablet) PO SCH (09:00)
[2021-01-13] MEDS ORDERED: Docusate Sodium 100 MG Cap PO SCH (09:00)
[2021-01-13] MEDS: Sodium Chloride 0.9% 1,000 ML IV SCH (09:00)
[2021-01-13] MEDS: Nozin Nasal Sanitizer NASBOTH SCH ×2 (09:02→21:01)
[2021-01-13] MEDS: Docusate Sodium 100 MG Cap PO SCH (09:11)
[2021-01-13] MEDS: atorvaSTATin 20 MG Tab PO SCH (09:12)
[2021-01-13] MEDS: Enoxaparin 30 MG/0.3 ML Syringe SUBCUT SCH (09:12)
[2021-01-13] MEDS: Tamsulosin 0.4 MG Cap.ER PO SCH (09:12)
[2021-01-13] MEDS: Gabapentin 300 MG Cap PO SCH ×3 (09:13→21:02)
[2021-01-13] MEDS: buPROPion 100 MG Tab.SR PO SCH (09:13)
[2021-01-13] MEDS ORDERED: Sodium Chloride 0.9% 500 ML IV ONE (10:00)
[2021-01-13] MEDS: Carbidopa/Levodopa 50-200 MG Tab.ER PO SCH (21:02)
[2021-01-13] MEDS: Melatonin 3 MG Tab PO SCH (21:02)
[2021-01-14] MEDS: Ketorolac 30 MG/ML SDV IVPUSH PRN ×3 (01:17→21:38)
[2021-01-14] MEDS: RYTARY PO SCH ×6 (06:00→17:40)
[2021-01-14] MEDS: Midodrine 5 MG Tab PO SCH ×2 (06:00→11:02)
[2021-01-14] MEDS: Pramipexole 0.5 MG Tab PO SCH ×2 (06:00→14:21)
[2021-01-14] MEDS: Acetaminophen/HYDROcodone 325-5 MG Tab PO PRN ×3 (08:05→23:21)
[2021-01-14] MEDS: Nozin Nasal Sanitizer NASBOTH SCH ×2 (09:42→20:39)
[2021-01-14] MEDS: Enoxaparin 30 MG/0.3 ML Syringe SUBCUT SCH (09:44)
[2021-01-14] MEDS: Gabapentin 300 MG Cap PO SCH ×3 (09:44→20:39)
[2021-01-14] MEDS: Docusate Sodium 100 MG Cap PO SCH (09:44)
[2021-01-14] MEDS: Tamsulosin 0.4 MG Cap.ER PO SCH (09:44)
[2021-01-14] MEDS: atorvaSTATin 20 MG Tab PO SCH (09:44)
[2021-01-14] MEDS: buPROPion 100 MG Tab.SR PO SCH (09:45)
--- NOTE | 2021-01-14 12:31 | PCM.SURGPN ---
- General Info Date of Service: 01/14/21 Date of Surgery/Procedure: 01/12/21 POD#: 2 Post-Op Diagnosis: left hip osteoarthritis Functional Status: Reports: Pain Controlled, Tolerating Diet, Incentive Spirometry - Review of Systems General: Reports: No Symptoms Musculoskeletal: Reports: Leg Pain (left ), Joint Pain (left hip ) Skin: Reports: No Symptoms Neurological: Reports: Confusion Psychiatric: Reports: No Symptoms - Patient Data Vitals - Most Recent: Last Vital Signs Temp 97.3 F 01/14/21 11:00 Pulse 78 01/14/21 11:00 Resp 16 01/14/21 11:00 BP 119/48 L 01/14/21 11:00 Pulse Ox 97 01/14/21 11:00 Weight - Most Recent: 270 lb I&O - Last 24 Hours: Intake & Output 01/13/21 01/14/21 01/14/21 22:59 06:59 14:59 Intake Total 1820 350 600 Output Total 250 65 10 Balance 1570 -29* 516 Med Orders - Current: Current Medications Acetaminophen (Acetaminophen 325 Mg Tab) 650 mg PO Q4H PRN PRN Reason: Pain/Fever Hydrocodone Bitart/Acetaminophen (Acetaminophen/Hydrocodone 325-5 Mg Tab) 1 tab PO Q4H PRN PRN Reason: Pain Last Admin: 01/14/21 08:05 Dose: 1 tab Documented by: Atorvastatin Calcium (Atorvastatin 20 Mg Tab) 20 mg PO DAILY [facility] Last Admin: 01/14/21 09:44 Dose: 20 mg Documented by: Bandage/Support Products (Nozin Nasal Resistance Welder) 1 applic NASBOTH BID [facility] Stop: 01/18/21 21:01 Last Admin: 01/14/21 09:42 Dose: 1 applic Documented by: Bupropion HCl (Bupropion 100 Mg Tab.Sr) 100 mg PO DAILY [facility] Last Admin: 01/14/21 09:45 Dose: 100 mg Documented by: Carbidopa/Levodopa (Carbidopa/Levodopa 50-200 Mg Tab.Er) 1 tab PO BEDTIME [facility] Last Admin: 01/13/21 21:02 Dose: 1 tab Documented by: Docusate Sodium (Docusate Sodium 100 Mg Cap) 100 mg PO DAILY [facility] Last Admin: 01/14/21 09:44 Dose: 100 mg Documented by: Enoxaparin Sodium (Enoxaparin 30 Mg/0.3 Ml Syringe) 30 mg SUBCUT DAILY [facility] Last Admin: 01/14/21 09:44 Dose: 30 mg Documented by: Gabapentin (Gabapentin 300 Mg Cap) 600 mg PO TID [facility] Last Admin: 01/14/21 09:44 Dose: 600 mg Documented by: Sodium Chloride (Normal Saline) 1,000 mls @ 125 mls/hr IV ASDIRECTED [facility] Last Admin: 01/13/21 09:00 Dose: 125 mls/hr Documented by: Ketorolac Tromethamine (Ketorolac 30 Mg/Ml Sdv) 30 mg IVPUSH Q8H PRN PRN Reason: Breakthrough Pain Stop: 01/18/21 16:36 Last Admin: 01/14/21 10:52 Dose: 30 mg Documented by: Magnesium Hydroxide (Magnesium Hydroxide 400 Mg/5 Ml Susp 30 Ml Cup) 30 ml PO Q6H PRN PRN Reason: Stool Softener Melatonin (Melatonin 3 Mg Tab) 9 mg PO BEDTIME [facility] Last Admin: 01/13/21 21:02 Dose: 9 mg Documented by: Midodrine (Midodrine 5 Mg Tab) 5 mg PO DAILY@1200 [facility] Last Admin: 01/14/21 11:02 Dose: 5 mg Documented by: Midodrine (Midodrine 5 Mg Tab) 10 mg PO 0600 [facility] Last Admin: 01/14/21 06:00 Dose: 10 mg Documented by: Morphine Sulfate (Morphine 2 Mg/Ml Syringe) 1 mg IV Q1H PRN PRN Reason: Breakthrough Pain Last Admin: 01/12/21 12:24 Dose: 1 mg Documented by: Rytary Er 36.25 Mg- (145 Mg Ptom) 1 tab PO TID@, [facility] Last Admin: 01/14/21 10:53 Dose: 1 tab Documented by: Rytary Er 48.75 Mg- (195 Mg Ptom) 1 cap PO DAILY@0600 [facility] Last Admin: 01/14/21 06:00 Dose: 1 cap Documented by: Rytary Er 48.75 Mg- (195 Mg Ptom) 0 tab PO BID@ [facility] Last Admin: 01/14/21 10:53 Dose: 2 tab Documented by: Ondansetron HCl (Ondansetron 4 Mg/2 Ml Sdv) 4 mg IVPUSH Q6H PRN PRN Reason: Nausea/Vomiting Oxycodone/Acetaminophen (Acetaminophen/Oxycodone 325-5 Mg Tab) 1 - 2 tab PO Q4H PRN PRN Reason: Pain Last Admin: 01/13/21 08:04 Dose: 2 tab Documented by: Pramipexole Dihydrochloride (Pramipexole 0.5 Mg Tab) 1 mg PO BID@ [facility] Last Admin: 01/14/21 06:00 Dose: 1 mg Documented by: Tamsulosin HCl (Tamsulosin 0.4 Mg Cap.Er) 0.4 mg PO DAILY [facility] Last Admin: 01/14/21 09:44 Dose: 0.4 mg Documented by: Discontinued Medications Bandage/Support Products (Nozin Nasal Resistance Welder) 1 applic NASBOTH ONETIME ONE Stop: 01/12/21 06:31 Last Admin: 01/12/21 06:55 Dose: 3 swab Documented by: Carbidopa/Levodopa (Carbidopa/Levodopa 50-200 Mg Tab.Er) 1 tab PO BEDTIME [facility] Dexamethasone (Dexamethasone 4 Mg/Ml Sdv) Confirm Administered Dose 4 mg .ROUTE .STK-MED ONE Stop: 01/12/21 07:28 Docusate Sodium (Docusate Sodium 100 Mg Cap) 100 mg PO DAILY [facility] Enoxaparin Sodium (Enoxaparin 30 Mg/0.3 Ml Syringe) 30 mg SUBCUT DAILY [facility] Fentanyl (Fentanyl 250 Mcg/5 Ml Sdv) Confirm Administered Dose 250 mcg .ROUTE .STK-MED ONE Stop: 01/12/21 07:29 Fentanyl (Fentanyl 250 Mcg/5 Ml Sdv) Confirm Administered Dose 250 mcg .ROUTE .STK-MED ONE Stop: 01/12/21 08:15 Glycopyrrolate (Glycopyrrolate 0.2 Mg/Ml 5 Ml Mdv) Confirm Administered Dose 1 mg .ROUTE .STK-MED ONE Stop: 01/12/21 07:28 Cefazolin Sodium/Dextrose 2 gm (/ Premix) 50 mls @ 100 mls/hr IV ONETIME ONE Stop: 01/12/21 07:59 Last Admin: 01/12/21 08:24 Dose: 100 mls/hr Documented by: Lactated Ringer's (Ringers, Lactated) 1,000 mls @ 75 mls/hr IV ASDIRECTED [facility] Last Admin: 01/12/21 06:55 Dose: 75 mls/hr Documented by: Tranexamic Acid 1,000 mg/ (Sodium Chloride) 60 mls @ 240 mls/hr IV ONETIME ONE Stop: 01/12/21 07:44 Last Admin: 01/12/21 08:26 Dose: 240 mls/hr Documented by: Lactated Ringer's (Ringers, Lactated) Confirm Administered Dose 1,000 mls @ as directed .ROUTE .STK-MED ONE Stop: 01/12/21 09:44 Cefazolin Sodium 1 gm/ Sodium (Chloride) 50 mls @ 200 mls/hr IV Q8H [facility] Stop: 01/13/21 02:44 Last Admin: 01/12/21 21:23 Dose: Not Given Documented by: Cefazolin Sodium/Dextrose 1 gm (/ Premix) 50 mls @ 100 mls/hr IV Q8H [facility] Stop: 01/13/21 08:29 Last Admin: 01/13/21 08:05 Dose: 100 mls/hr Documented by: Sodium Chloride (Normal Saline) 500 mls @ 500 mls/hr IV .BOLUS ONE Stop: 01/13/21 10:59 Last Admin: 01/13/21 10:07 Dose: 500 mls/hr Documented by: Midodrine (Midodrine 5 Mg Tab) 5 mg PO .NOON [facility] Morphine Sulfate (Morphine 2 Mg/Ml Syringe) 1 mg SUBCUT Q1H PRN PRN Reason: Breakthrough Pain Neostigmine Methylsulfate (Neostigmine Methylsulfate 1 Mg/Ml 5 Ml Syringe) Confi rm Administered Dose 5 mg .ROUTE .STK-MED ONE Stop: 01/12/21 07:28 Non-Formulary Medication (Atorvastatin [Lipitor]) 20 mg PO DAILY [facility] Non-Formulary Medication (Carbidopa/Levodopa [Rytary Er 36.25 Mg-145 Mg Cap]) 1 tab PO TID@ [facility] Last Admin: 01/12/21 21:23 Dose: Not Given Documented by: Non-Formulary Medication (Carbidopa/Levodopa [Rytary Er 48.75 Mg-195 Mg Cap]) 1 cap PO DAILY@0600 [facility] Non-Formulary Medication (Carbidopa/Levodopa [Rytary Er 48.75 Mg-195 Mg Cap]) 2 tab PO BID@,17 [facility] Last Admin: 01/12/21 21:24 Dose: Not Given Documented by: Non-Formulary Medication (Gabapentin [Neurontin]) 600 mg PO TID [facility] Non-Formulary Medication (Melatonin [Melatonin]) 10 mg PO BEDTIME [facility] Non-Formulary Medication (Midodrine [Midodrine]) 10 mg PO 0600 [facility] Non-Formulary Medication (Pramipexole Di-Hcl [Mirapex]) 1 mg PO BID@ [facility] Rytary Er 48.75 Mg- (195 Mg Ptom) 0 tab PO ONETIME ONE Stop: 01/12/21 13:31 Last Admin: 01/12/21 13:31 Dose: 2 tab Documented by: Ondansetron HCl (Ondansetron 4 Mg/2 Ml Sdv) Confirm Administered Dose 4 mg .ROUTE .STK-MED ONE Stop: 01/12/21 07:28 Povidone Iodine (Povidone-Iodine 10% Soln 118.25 Ml Bottle) Confirm Administered Dose 1 ml .ROUTE .STK-MED ONE Stop: 01/12/21 06:34 Last Admin: 01/12/21 08:43 Dose: 15 ml Documented by: Propofol (Propofol 200 Mg/20 Ml Sdv) Confirm Administered Dose 200 mg .ROUTE .STK-MED ONE Stop: 01/12/21 07:28 Rocuronium [place] (Rocuronium 50 Mg/5 Ml Vial) Confirm Administered Dose 50 mg .ROUTE .STK-MED ONE Stop: 01/12/21 07:28 Rocuronium [place] (Rocuronium 50 Mg/5 Ml Vial) Confirm Administered Dose 50 mg .ROUTE .STK-MED ONE Stop: 01/12/21 09:27 Succinylcholine Chloride (Succinylcholine 200 Mg/10 Ml Mdv) Confirm Administered Dose 200 mg .ROUTE .STK-MED ONE Stop: 01/12/21 07:28 Tamsulosin HCl (Tamsulosin 0.4 Mg Cap.Er) 0.4 mg PO DAILY [facility] - Exam Wound/Incisions: Healing Well, Dressing Dry and Intact Quality Assessment: Urine Catheter, DVT Prophylaxis General: Alert, Cooperative, No Acute Distress Extremities: Pedal Edema (bilateral lymph edema per patients baseline ), Limited Range of Motion Skin: Dry, Intact Neurological: No New Focal Deficit Psy/Mental Status: Alert, Normal Affect, Normal Mood Sepsis Event Note - Evaluation Sepsis Screening Result: No Definite Risk - Focused Exam Vital Signs: Vital Signs Temp Pulse Resp BP Pulse Ox 01/14/21 11:00 97.3 F 78 16 119/48 L 97 01/14/21 07:10 97.4 F 82 16 108/49 L 95 01/14/21 02:45 95.7 F L 90 16 101/49 L 90 L - Problem List & Annotations (1) Status post total hip replacement, left SNOMED Code(s): 888766229479, 038724562344 Code(s): Z96.642 - PRESENCE OF LEFT ARTIFICIAL HIP JOINT Status: Acute Current Visit: Yes (2) Postoperative anemia SNOMED Code(s): 998258437, 646451897 Code(s): D64.9 - ANEMIA, UNSPECIFIED Status: Acute Current Visit: Yes - Problem List Review Problem List Initiated/Reviewed/Updated: Yes - My Orders Last 24 Hours: Active Orders 24 hr Category Date Time Status Admission Status [Patient Status] [ADT] Routine ADT 01/13/21 11:31 Active Ketorolac [Toradol] Med 01/13/21 16:35 Active 30 mg IVPUSH Q8H PRN Convert IV to Saline Lock [OM.PC] Routine Oth 01/13/21 17:33 Ordered Medication Orders Acetaminophen (Acetaminophen 325 Mg Tab) 650 mg PO Q4H PRN PRN Reason: Pain/Fever Hydrocodone Bitart/Acetaminophen (Acetaminophen/Hydrocodone 325-5 Mg Tab) 1 tab PO Q4H PRN PRN Reason: Pain Last Admin: 01/14/21 08:05 Dose: 1 tab Documented by: [id number] Admin: 01/12/21 17:47 Dose: 1 tab Documented by: [id number] Atorvastatin Calcium (Atorvastatin 20 Mg Tab) 20 mg PO DAILY [facility] Last Admin: 01/14/21 09:44 Dose: 20 mg Documented by: Admin: 01/13/21 09:12 Dose: 20 mg Documented by: YAYO Bandage/Support Products (Nozin Nasal Resistance Welder) 1 applic NASBOTH BID [facility] Stop: 01/18/21 21:01 Last Admin: 01/14/21 09:42 Dose: 1 applic Documented by: Admin: 01/13/21 21:01 Dose: 1 applic Documented by: Admin: 01/13/21 09:02 Dose: 1 applic Documented by: Admin: 01/12/21 22:17 Dose: Not Given Documented by: NATALIE Bupropion HCl (Bupropion 100 Mg Tab.Sr) 100 mg PO DAILY [facility] Last Admin: 01/14/21 09:45 Dose: 100 mg Documented by: Admin: 01/13/21 09:13 Dose: 100 mg Documented by: YAYO Carbidopa/Levodopa (Carbidopa/Levodopa 50-200 Mg Tab.Er) 1 tab PO BEDTIME [facility] Admin: 01/13/21 21:02 Dose: 1 tab Documented by: Admin: 01/12/21 20:08 Dose: 1 tab Documented by: NATALIE Docusate Sodium (Docusate Sodium 100 Mg Cap) 100 mg PO DAILY [facility] Admin: 01/14/21 09:44 Dose: 100 mg Documented by: Admin: 01/13/21 09:11 Dose: 100 mg Documented by: YAYO Enoxaparin Sodium (Enoxaparin 30 Mg/0.3 Ml Syringe) 30 mg SUBCUT DAILY [facility] Admin: 01/14/21 09:44 Dose: 30 mg Documented by: Admin: 01/13/21 09:12 Dose: 30 mg Documented by: YAYO Gabapentin (Gabapentin 300 Mg Cap) 600 mg PO TID [facility] Admin: 01/14/21 09:44 Dose: 600 mg Documented by: Admin: 01/13/21 21:02 Dose: 600 mg Documented by: Admin: 01/13/21 14:28 Dose: 600 mg Documented by: Admin: 01/13/21 09:13 Dose: 600 mg Documented by: Admin: 01/12/21 20:07 Dose: 600 mg Documented by: Admin: 01/12/21 13:32 Dose: 600 mg Documented by: ROHITH Sodium Chloride (Normal Saline) 1,000 mls @ 125 mls/hr IV ASDIRECTED [facility] Last Admin: 01/13/21 09:00 Dose: 125 mls/hr Documented by: Infusion: 01/12/21 23:26 Dose: 125 mls/hr Documented by: Admin: 01/12/21 15:26 Dose: 125 mls/hr Documented by: NORBERTO Ketorolac Tromethamine (Ketorolac 30 Mg/Ml Sdv) 30 mg IVPUSH Q8H PRN PRN Reason: Breakthrough Pain Stop: 01/18/21 16:36 Last Admin: 01/14/21 10:52 Dose: 30 mg Documented by: Admin: 01/14/21 01:17 Dose: 30 mg Documented by: KARLO Magnesium Hydroxide (Magnesium Hydroxide 400 Mg/5 Ml Susp 30 Ml Cup) 30 ml PO Q6H PRN PRN Reason: Stool Softener Melatonin (Melatonin 3 Mg Tab) 9 mg PO BEDTIME [facility] Last Admin: 01/13/21 21:02 Dose: 9 mg Documented by: Admin: 01/12/21 20:06 Dose: 9 mg Documented by: NATALIE Midodrine (Midodrine 5 Mg Tab) 5 mg PO DAILY@1200 [facility] Last Admin: 01/14/21 11:02 Dose: 5 mg Documented by: Admin: 01/13/21 11:13 Dose: 5 mg Documented by: Admin: 01/12/21 12:28 Dose: 5 mg Documented by: ROHITH Midodrine (Midodrine 5 Mg Tab) 10 mg PO 0600 [facility] Last Admin: 01/14/21 06:00 Dose: 10 mg Documented by: Admin: 01/13/21 05:08 Dose: 10 mg Documented by: NATALIE Morphine Sulfate (Morphine 2 Mg/Ml Syringe) 1 mg IV Q1H PRN PRN Reason: Breakthrough Pain Last Admin: 01/12/21 12:24 Dose: 1 mg Documented by: ROHITH Rytary Er 36.25 Mg- (145 Mg Ptom) 1 tab PO TID@06,11,17 [facility] Last Admin: 01/14/21 10:53 Dose: 1 tab Documented by: Admin: 01/14/21 06:00 Dose: 1 tab Documented by: Admin: 01/13/21 17:25 Dose: 1 tab Documented by: Admin: 01/13/21 11:10 Dose: 1 tab Documented by: Admin: 01/13/21 05:07 Dose: 1 tab Documented by: Admin: 01/12/21 17:10 Dose: 1 tab Documented by: ROHITH Rytary Er 48.75 Mg- (195 Mg Ptom) 1 cap PO DAILY@0600 [facility] Last Admin: 01/14/21 06:00 Dose: 1 cap Documented by: Admin: 01/13/21 05:07 Dose: 1 cap Documented by: NATALIE Rytary Er 48.75 Mg- (195 Mg Ptom) 0 tab PO BID@ [facility] Last Admin: 01/14/21 10:53 Dose: 2 tab Documented by: Admin: 01/13/21 17:25 Dose: 2 tab Documented by: Admin: 01/13/21 11:10 Dose: 2 tab Documented by: Admin: 01/12/21 17:10 Dose: 2 tab Documented by: ROHITH Ondansetron HCl (Ondansetron 4 Mg/2 Ml Sdv) 4 mg IVPUSH Q6H PRN PRN Reason: Nausea/Vomiting Oxycodone/Acetaminophen (Acetaminophen/Oxycodone 325-5 Mg Tab) 1 - 2 tab PO Q4H PRN PRN Reason: Pain Last Admin: 01/13/21 08:04 Dose: 2 tab Documented by: Admin: 01/13/21 02:15 Dose: 1 tab Documented by: Admin: 01/13/21 01:41 Dose: 1 tab Documented by: NATALIE Pramipexole Dihydrochloride (Pramipexole 0.5 Mg Tab) 1 mg PO BID@ [facility] Last Admin: 01/14/21 06:00 Dose: 1 mg Documented by: Admin: 01/13/21 14:28 Dose: 1 mg Documented by: Admin: 01/13/21 05:08 Dose: 1 mg Documented by: Admin: 01/12/21 13:32 Dose: 1 mg Documented by: ROHITH Tamsulosin HCl (Tamsulosin 0.4 Mg Cap.Er) 0.4 mg PO DAILY [facility] Last Admin: 01/14/21 09:44 Dose: 0.4 mg Documented by: [id number] Admin: 01/13/21 09:12 Dose: 0.4 mg Documented by: YAYO - Assessment Assessment (Free Text/Narrative):: Patient is a pleasant 71-year-old male, status post left total hip arthroplasty, postop day #2. No acute events overnight. Patient remains hemodynamically stable. Blood pressures have improved from yesterday. Patient denied feeling symptomatic with hypotension; states at home he will get dizzy and see purple, both of which were denied. Patient denied fever, chills, dizziness, dyspnea, nor fatigue. Postoperative anemia remains stable. Patient worked with therapy services yesterday, but due to low blood pressures, ambulation abilities were limited. Did work on bilateral lower extremity stretches and exercises in AM session, and able to transfer to edge of bed in PM session. On POD#2 with improved BP, physical therapy was able to work with patient and Michelle Steady to transfer from bed to chair. Patient seemed very drowsy yesterday with 2 tabs of Percocet; 1 tab Percocet and prn Toradol utilized today and patient seems more alert. Pain well controlled at rest, increased after therapy. Tolerating regular diet well, no nausea or emesis. Left hip dressing changed today on POD#2. IV saline locked the evening of POD #1. Cisneros remains in place due to limited ambulation abilities at this time. Continues to require inpatient status to allow for further therapy services to progress transfer abilities from bed to chair and ambulation abilities for safe discharge to home. Exam: Left hip incision well approximated, Steri-Strips above incision with minimal drainage. No surrounding erythema, nor active drainage. Mild warmth to touch of left hip. No surrounding ecchymosis of left hip. Bilateral lower extremity lymphedema per patient's baseline. Rory good and SCDs on bilateral LEs. Plan: * Anticipate participation in PT and OT daily while in the hospital. * Pain control: continue with current regimen. * DVT/VTE prophylaxis: bilateral LE SCDs now in place for mechanical. 30 mg subcutaneous Lovenox qd while inpatient for chemical. * Continue to monitor vitals q4 hrs, continue home midodrine dose. If becomes hypotensive and symptomatic, can administer another saline bolus. * Post-operative anemia remains stable at this time, can recheck CBC if patient becomes symptomatic. * Will discontinue Cisneros as ambulation ability improves. * Anticipate discharge to home with [facility] referral when ambulation abilities progress, patient is medically stable, and pain is well controlled with PO medications.
[2021-01-14] MEDS: Melatonin 3 MG Tab PO SCH (20:39)
[2021-01-14] MEDS: Carbidopa/Levodopa 50-200 MG Tab.ER PO SCH (20:40)
[2021-01-15] MEDS: RYTARY PO SCH ×6 (05:32→17:05)
[2021-01-15] MEDS: Midodrine 5 MG Tab PO SCH ×2 (05:35→11:35)
[2021-01-15] MEDS: Pramipexole 0.5 MG Tab PO SCH ×2 (05:36→14:30)
[2021-01-15] MEDS: Acetaminophen/HYDROcodone 325-5 MG Tab PO PRN ×2 (06:27→14:28)
[2021-01-15] MEDS: Nozin Nasal Sanitizer NASBOTH SCH ×2 (09:06→21:28)
[2021-01-15] MEDS: Docusate Sodium 100 MG Cap PO SCH (09:06)
[2021-01-15] MEDS: Gabapentin 300 MG Cap PO SCH ×3 (09:06→21:28)
[2021-01-15] MEDS: buPROPion 100 MG Tab.SR PO SCH (09:07)
[2021-01-15] MEDS: atorvaSTATin 20 MG Tab PO SCH (09:07)
[2021-01-15] MEDS: Tamsulosin 0.4 MG Cap.ER PO SCH (09:07)
[2021-01-15] MEDS: Enoxaparin 30 MG/0.3 ML Syringe SUBCUT SCH (09:07)
--- NOTE | 2021-01-15 12:07 | PCM.SURGPN ---
- General Info Date of Service: 01/15/21 Date of Surgery/Procedure: 01/12/21 POD#: 4 Functional Status: Reports: Pain Controlled, Tolerating Diet, Ambulating (with FWW, x2 assist ), Urinating - Review of Systems Musculoskeletal: Reports: Joint Pain (L hip ), Joint Swelling (bilateral LEs ) - Patient Data Vitals - Most Recent: Last Vital Signs Temp 98.1 F 01/15/21 07:00 Pulse 82 01/15/21 07:00 Resp 16 01/15/21 07:00 BP 113/51 L 01/15/21 07:00 Pulse Ox 96 01/15/21 07:00 Weight - Most Recent: 270 lb I&O - Last 24 Hours: Intake & Output 01/14/21 01/15/21 01/15/21 22:59 06:59 14:59 Intake Total 950 Output Total 20 450 40 Balance -20 500 -39* Med Orders - Current: Current Medications Acetaminophen (Acetaminophen 325 Mg Tab) 650 mg PO Q4H PRN PRN Reason: Pain/Fever Hydrocodone Bitart/Acetaminophen (Acetaminophen/Hydrocodone 325-5 Mg Tab) 1 tab PO Q4H PRN PRN Reason: Pain Last Admin: 01/15/21 06:27 Dose: 1 tab Documented by: Atorvastatin Calcium (Atorvastatin 20 Mg Tab) 20 mg PO DAILY [facility] Last Admin: 01/15/21 09:07 Dose: 20 mg Documented by: Bandage/Support Products (Nozin Nasal Accounting Supervisor) 1 applic NASBOTH BID [facility] Stop: 01/18/21 21:01 Last Admin: 01/15/21 09:06 Dose: 1 applic Documented by: Bupropion HCl (Bupropion 100 Mg Tab.Sr) 100 mg PO DAILY [facility] Last Admin: 01/15/21 09:07 Dose: 100 mg Documented by: Carbidopa/Levodopa (Carbidopa/Levodopa 50-200 Mg Tab.Er) 1 tab PO BEDTIME [facility] Last Admin: 01/14/21 20:40 Dose: 1 tab Documented by: Docusate Sodium (Docusate Sodium 100 Mg Cap) 100 mg PO DAILY [facility] Last Admin: 01/15/21 09:06 Dose: 100 mg Documented by: Enoxaparin Sodium (Enoxaparin 30 Mg/0.3 Ml Syringe) 30 mg SUBCUT DAILY [facility] Last Admin: 01/15/21 09:07 Dose: 30 mg Documented by: Gabapentin (Gabapentin 300 Mg Cap) 600 mg PO TID [facility] Last Admin: 01/15/21 09:06 Dose: 600 mg Documented by: Sodium Chloride (Normal Saline) 1,000 mls @ 125 mls/hr IV ASDIRECTED [facility] Last Admin: 01/13/21 09:00 Dose: 125 mls/hr Documented by: Ketorolac Tromethamine (Ketorolac 30 Mg/Ml Sdv) 30 mg IVPUSH Q8H PRN PRN Reason: Breakthrough Pain Stop: 01/18/21 16:36 Last Admin: 01/14/21 21:38 Dose: 30 mg Documented by: Magnesium Hydroxide (Magnesium Hydroxide 400 Mg/5 Ml Susp 30 Ml Cup) 30 ml PO Q6H PRN PRN Reason: Stool Softener Last Admin: 01/15/21 09:06 Dose: 30 ml Documented by: Melatonin (Melatonin 3 Mg Tab) 9 mg PO BEDTIME [facility] Last Admin: 01/14/21 20:39 Dose: 9 mg Documented by: Midodrine (Midodrine 5 Mg Tab) 5 mg PO DAILY@1200 [facility] Last Admin: 01/15/21 11:35 Dose: 5 mg Documented by: Midodrine (Midodrine 5 Mg Tab) 10 mg PO 0600 [facility] Last Admin: 01/15/21 05:35 Dose: 10 mg Documented by: Morphine Sulfate (Morphine 2 Mg/Ml Syringe) 1 mg IV Q1H PRN PRN Reason: Breakthrough Pain Last Admin: 01/12/21 12:24 Dose: 1 mg Documented by: Rytary Er 36.25 Mg- (145 Mg Ptom) 1 tab PO TID@, [facility] Last Admin: 01/15/21 11:34 Dose: 1 tab Documented by: Rytary Er 48.75 Mg- (195 Mg Ptom) 1 cap PO DAILY@0600 [facility] Last Admin: 01/15/21 05:34 Dose: 1 cap Documented by: Rytary Er 48.75 Mg- (195 Mg Ptom) 0 tab PO BID@ [facility] Last Admin: 01/15/21 11:34 Dose: 2 tab Documented by: Ondansetron HCl (Ondansetron 4 Mg/2 Ml Sdv) 4 mg IVPUSH Q6H PRN PRN Reason: Nausea/Vomiting Oxycodone/Acetaminophen (Acetaminophen/Oxycodone 325-5 Mg Tab) 1 - 2 tab PO Q4H PRN PRN Reason: Pain Last Admin: 01/13/21 08:04 Dose: 2 tab Documented by: Pramipexole Dihydrochloride (Pramipexole 0.5 Mg Tab) 1 mg PO BID@ [facility] Last Admin: 01/15/21 05:36 Dose: 1 mg Documented by: Tamsulosin HCl (Tamsulosin 0.4 Mg Cap.Er) 0.4 mg PO DAILY [facility] Last Admin: 01/15/21 09:07 Dose: 0.4 mg Documented by: Discontinued Medications Bandage/Support Products (Nozin Nasal Accounting Supervisor) 1 applic NASBOTH ONETIME ONE Stop: 01/12/21 06:31 Last Admin: 01/12/21 06:55 Dose: 3 swab Documented by: Carbidopa/Levodopa (Carbidopa/Levodopa 50-200 Mg Tab.Er) 1 tab PO BEDTIME [facility] Dexamethasone (Dexamethasone 4 Mg/Ml Sdv) Confirm Administered Dose 4 mg .ROUTE .STK-MED ONE Stop: 01/12/21 07:28 Docusate Sodium (Docusate Sodium 100 Mg Cap) 100 mg PO DAILY [facility] Enoxaparin Sodium (Enoxaparin 30 Mg/0.3 Ml Syringe) 30 mg SUBCUT DAILY [facility] Fentanyl (Fentanyl 250 Mcg/5 Ml Sdv) Confirm Administered Dose 250 mcg .ROUTE .STK-MED ONE Stop: 01/12/21 07:29 Fentanyl (Fentanyl 250 Mcg/5 Ml Sdv) Confirm Administered Dose 250 mcg .ROUTE .STK-MED ONE Stop: 01/12/21 08:15 Glycopyrrolate (Glycopyrrolate 0.2 Mg/Ml 5 Ml Mdv) Confirm Administered Dose 1 mg .ROUTE .STK-MED ONE Stop: 01/12/21 07:28 Cefazolin Sodium/Dextrose 2 gm (/ Premix) 50 mls @ 100 mls/hr IV ONETIME ONE Stop: 01/12/21 07:59 Last Admin: 01/12/21 08:24 Dose: 100 mls/hr Documented by: Lactated Ringer's (Ringers, Lactated) 1,000 mls @ 75 mls/hr IV ASDIRECTED [facility] Last Admin: 01/12/21 06:55 Dose: 75 mls/hr Documented by: Tranexamic Acid 1,000 mg/ (Sodium Chloride) 60 mls @ 240 mls/hr IV ONETIME ONE Stop: 01/12/21 07:44 Last Admin: 01/12/21 08:26 Dose: 240 mls/hr Documented by: Lactated Ringer's (Ringers, Lactated) Confirm Administered Dose 1,000 mls @ as directed .ROUTE .STK-MED ONE Stop: 01/12/21 09:44 Cefazolin Sodium 1 gm/ Sodium (Chloride) 50 mls @ 200 mls/hr IV Q8H [facility] Stop: 01/13/21 02:44 Last Admin: 01/12/21 21:23 Dose: Not Given Documented by: Cefazolin Sodium/Dextrose 1 gm (/ Premix) 50 mls @ 100 mls/hr IV Q8H [facility] Stop: 01/13/21 08:29 Last Admin: 01/13/21 08:05 Dose: 100 mls/hr Documented by: Sodium Chloride (Normal Saline) 500 mls @ 500 mls/hr IV .BOLUS ONE Stop: 01/13/21 10:59 Last Admin: 01/13/21 10:07 Dose: 500 mls/hr Documented by: Midodrine (Midodrine 5 Mg Tab) 5 mg PO .NOON [facility] Morphine Sulfate (Morphine 2 Mg/Ml Syringe) 1 mg SUBCUT Q1H PRN PRN Reason: Breakthrough Pain Neostigmine Methylsulfate (Neostigmine Methylsulfate 1 Mg/Ml 5 Ml Syringe) Confirm Administered Dose 5 mg .ROUTE .STK-MED ONE Stop: 01/12/21 07:28 Non-Formulary Medication (Atorvastatin [Lipitor]) 20 mg PO DAILY [facility] Non-Formulary Medication (Carbidopa/Levodopa [Rytary Er 36.25 Mg-145 Mg Cap]) 1 tab PO TID@ [facility] Last Admin: 01/12/21 21:23 Dose: Not Given Documented by: Non-Formulary Medication (Carbidopa/Levodopa [Rytary Er 48.75 Mg-195 Mg Cap]) 1 cap PO DAILY@0600 [facility] Non-Formulary Medication (Carbidopa/Levodopa [Rytary Er 48.75 Mg-195 Mg Cap]) 2 tab PO BID@17 [facility] Last Admin: 01/12/21 21:24 Dose: Not Given Documented by: Non-Formulary Medication (Gabapentin [Neurontin]) 600 mg PO TID [facility] Non-Formulary Medication (Melatonin [Melatonin]) 10 mg PO BEDTIME [facility] Non-Formulary Medication (Midodrine [Midodrine]) 10 mg PO 0600 [facility] Non-Formulary Medication (Pramipexole Di-Hcl [Mirapex]) 1 mg PO BID@ [facility] Rytary Er 48.75 Mg- (195 Mg Ptom) 0 tab PO ONETIME ONE Stop: 01/12/21 13:31 Last Admin: 01/12/21 13:31 Dose: 2 tab Documented by: Ondansetron HCl (Ondansetron 4 Mg/2 Ml Sdv) Confirm Administered Dose 4 mg .ROUTE .STK-MED ONE Stop: 01/12/21 07:28 Povidone Iodine (Povidone-Iodine 10% Soln 118.25 Ml Bottle) Confirm Administered Dose 1 ml .ROUTE .STK-MED ONE Stop: 01/12/21 06:34 Last Admin: 01/12/21 08:43 Dose: 15 ml Documented by: Propofol (Propofol 200 Mg/20 Ml Sdv) Confirm Administered Dose 200 mg .ROUTE .STK-MED ONE Stop: 01/12/21 07:28 Rocuronium Stuyvesant (Rocuronium 50 Mg/5 Ml Vial) Confirm Administered Dose 50 mg .ROUTE .STK-MED ONE Stop: 01/12/21 07:28 Rocuronium Stuyvesant (Rocuronium 50 Mg/5 Ml Vial) Confirm Administered Dose 50 mg .ROUTE .STK-MED ONE Stop: 01/12/21 09:27 Succinylcholine Chloride (Succinylcholine 200 Mg/10 Ml Mdv) Confirm Administered Dose 200 mg .ROUTE .STK-MED ONE Stop: 01/12/21 07:28 Tamsulosin HCl (Tamsulosin 0.4 Mg Cap.Er) 0.4 mg PO DAILY [facility] - Exam Wound/Incisions: Healing Well, Dressing Dry and Intact, No Drainage Quality Assessment: DVT Prophylaxis General: Alert, Oriented, Cooperative, No Acute Distress Extremities: Pedal Edema (per baseline with lymphedema ), Leg Pain Skin: Dry, Intact Neurological: No New Focal Deficit Psy/Mental Status: Alert, Normal Affect, Normal Mood Sepsis Event Note - Evaluation Sepsis Screening Result: No Definite Risk - Focused Exam Vital Signs: Vital Signs Temp Pulse Resp BP Pulse Ox 01/15/21 07:00 98.1 F 82 16 113/51 L 96 01/15/21 05:00 98.3 F 76 16 122/60 96 - Problem List & Annotations (1) Status post total hip replacement, left SNOMED Code(s): 678058436054, 359311017416 Code(s): Z96.642 - PRESENCE OF LEFT ARTIFICIAL HIP JOINT Status: Acute Current Visit: Yes (2) Postoperative anemia SNOMED Code(s): 619642623, 873914377 Code(s): D64.9 - ANEMIA, UNSPECIFIED Status: Acute Current Visit: Yes - Problem List Review Problem List Initiated/Reviewed/Updated: Yes - My Orders Last 24 Hours: Active Orders 24 hr Category Date Time Status DC Cisneros Catheter [Urinary Catheter Removal] [RC] PER Care 01/15/21 09:08 Active UNIT ROUTINE Medication Orders Acetaminophen (Acetaminophen 325 Mg Tab) 650 mg PO Q4H PRN PRN Reason: Pain/Fever Hydrocodone Bitart/Acetaminophen (Acetaminophen/Hydrocodone 325-5 Mg Tab) 1 tab PO Q4H PRN PRN Reason: Pain Last Admin: 01/15/21 06:27 Dose: 1 tab Documented by: Admin: 01/14/21 23:21 Dose: 1 tab Documented by: Admin: 01/14/21 14:22 Dose: 1 tab Documented by: Admin: 01/14/21 08:05 Dose: 1 tab Documented by: Admin: 01/12/21 17:47 Dose: 1 tab Documented by: ROHITH Atorvastatin Calcium (Atorvastatin 20 Mg Tab) 20 mg PO DAILY [facility] Last Admin: 01/15/21 09:07 Dose: 20 mg Documented by: Admin: 01/14/21 09:44 Dose: 20 mg Documented by: Admin: 01/13/21 09:12 Dose: 20 mg Documented by: YAYO Bandage/Support Products (Nozin Nasal Accounting Supervisor) 1 applic NASBOTH BID [facility] Stop: 01/18/21 21:01 Last Admin: 01/15/21 09:06 Dose: 1 applic Documented by: Admin: 01/14/21 20:39 Dose: 1 applic Documented by: Admin: 01/14/21 09:42 Dose: 1 applic Documented by: Admin: 01/13/21 21:01 Dose: 1 applic Documented by: Admin: 01/13/21 09:02 Dose: 1 applic Documented by: Admin: 01/12/21 22:17 Dose: Not Given Documented by: NATALIE Bupropion HCl (Bupropion 100 Mg Tab.Sr) 100 mg PO DAILY [facility] Last Admin: 01/15/21 09:07 Dose: 100 mg Documented by: Admin: 01/14/21 09:45 Dose: 100 mg Documented by: Admin: 01/13/21 09:13 Dose: 100 mg Documented by: YAYO Carbidopa/Levodopa (Carbidopa/Levodopa 50-200 Mg Tab.Er) 1 tab PO BEDTIME [facility] Admin: 01/14/21 20:40 Dose: 1 tab Documented by: Admin: 01/13/21 21:02 Dose: 1 tab Documented by: Admin: 01/12/21 20:08 Dose: 1 tab Documented by: NATALIE Docusate Sodium (Docusate Sodium 100 Mg Cap) 100 mg PO DAILY [facility] Last Admin: 01/15/21 09:06 Dose: 100 mg Documented by: Admin: 01/14/21 09:44 Dose: 100 mg Documented by: Admin: 01/13/21 09:11 Dose: 100 mg Documented by: YAYO Enoxaparin Sodium (Enoxaparin 30 Mg/0.3 Ml Syringe) 30 mg SUBCUT DAILY [facility] Last Admin: 01/15/21 09:07 Dose: 30 mg Documented by: Admin: 01/14/21 09:44 Dose: 30 mg Documented by: Admin: 01/13/21 09:12 Dose: 30 mg Documented by: YAYO Gabapentin (Gabapentin 300 Mg Cap) 600 mg PO TID [facility] Last Admin: 01/15/21 09:06 Dose: 600 mg Documented by: Admin: 01/14/21 20:39 Dose: 600 mg Documented by: Admin: 01/14/21 14:22 Dose: 600 mg Documented by: Admin: 01/14/21 09:44 Dose: 600 mg Documented by: Admin: 01/13/21 21:02 Dose: 600 mg Documented by: Admin: 01/13/21 14:28 Dose: 600 mg Documented by: Admin: 01/13/21 09:13 Dose: 600 mg Documented by: Admin: 01/12/21 20:07 Dose: 600 mg Documented by: Admin: 01/12/21 13:32 Dose: 600 mg Documented by: ROHITH Sodium Chloride (Normal Saline) 1,000 mls @ 125 mls/hr IV ASDIRECTED [facility] Last Admin: 01/13/21 09:00 Dose: 125 mls/hr Documented by: Infusion: 01/12/21 23:26 Dose: 125 mls/hr Documented by: Admin: 01/12/21 15:26 Dose: 125 mls/hr Documented by: NORBERTO Ketorolac Tromethamine (Ketorolac 30 Mg/Ml Sdv) 30 mg IVPUSH Q8H PRN PRN Reason: Breakthrough Pain Stop: 01/18/21 16:36 Last Admin: 01/14/21 21:38 Dose: 30 mg Documented by: Admin: 01/14/21 10:52 Dose: 30 mg Documented by: Admin: 01/14/21 01:17 Dose: 30 mg Documented by: KARLO Magnesium Hydroxide (Magnesium Hydroxide 400 Mg/5 Ml Susp 30 Ml Cup) 30 ml PO Q6H PRN PRN Reason: Stool Softener Last Admin: 01/15/21 09:06 Dose: 30 ml Documented by: LONG Melatonin (Melatonin 3 Mg Tab) 9 mg PO BEDTIME [facility] Last Admin: 01/14/21 20:39 Dose: 9 mg Documented by: Admin: 01/13/21 21:02 Dose: 9 mg Documented by: Admin: 01/12/21 20:06 Dose: 9 mg Documented by: NATALIE Midodrine (Midodrine 5 Mg Tab) 5 mg PO DAILY@1200 [facility] Last Admin: 01/15/21 11:35 Dose: 5 mg Documented by: Admin: 01/14/21 11:02 Dose: 5 mg Documented by: Admin: 01/13/21 11:13 Dose: 5 mg Documented by: Admin: 01/12/21 12:28 Dose: 5 mg Documented by: ROHITH Midodrine (Midodrine 5 Mg Tab) 10 mg PO 0600 [facility] Last Admin: 01/15/21 05:35 Dose: 10 mg Documented by: Admin: 01/14/21 06:00 Dose: 10 mg Documented by: Admin: 01/13/21 05:08 Dose: 10 mg Documented by: NATALIE Morphine Sulfate (Morphine 2 Mg/Ml Syringe) 1 mg IV Q1H PRN PRN Reason: Breakthrough Pain Last Admin: 01/12/21 12:24 Dose: 1 mg Documented by: ROHITH Rytary Er 36.25 Mg- (145 Mg Ptom) 1 tab PO TID@06,,17 [facility] Admin: 01/15/21 11:34 Dose: 1 tab Documented by: Admin: 01/15/21 05:32 Dose: 1 tab Documented by: Admin: 01/14/21 17:40 Dose: 1 tab Documented by: Admin: 01/14/21 10:53 Dose: 1 tab Documented by: Admin: 01/14/21 06:00 Dose: 1 tab Documented by: Admin: 01/13/21 17:25 Dose: 1 tab Documented by: Admin: 01/13/21 11:10 Dose: 1 tab Documented by: Admin: 01/13/21 05:07 Dose: 1 tab Documented by: Admin: 01/12/21 17:10 Dose: 1 tab Documented by: ROHITH Rytary Er 48.75 Mg- (195 Mg Ptom) 1 cap PO DAILY@0600 [facility] Admin: 01/15/21 05:34 Dose: 1 cap Documented by: Admin: 01/14/21 06:00 Dose: 1 cap Documented by: Admin: 01/13/21 05:07 Dose: 1 cap Documented by: MAROJES Rytary Er 48.75 Mg- (195 Mg Ptom) 0 tab PO BID@ [facility] Last Admin: 01/15/21 11:34 Dose: 2 tab Documented by: Admin: 01/14/21 17:40 Dose: 2 tab Documented by: Admin: 01/14/21 10:53 Dose: 2 tab Documented by: Admin: 01/13/21 17:25 Dose: 2 tab Documented by: Admin: 01/13/21 11:10 Dose: 2 tab Documented by: Admin: 01/12/21 17:10 Dose: 2 tab Documented by: ROHITH Ondansetron HCl (Ondansetron 4 Mg/2 Ml Sdv) 4 mg IVPUSH Q6H PRN PRN Reason: Nausea/Vomiting Oxycodone/Acetaminophen (Acetaminophen/Oxycodone 325-5 Mg Tab) 1 - 2 tab PO Q4H PRN PRN Reason: Pain Last Admin: 01/13/21 08:04 Dose: 2 tab Documented by: Admin: 01/13/21 02:15 Dose: 1 tab Documented by: Admin: 01/13/21 01:41 Dose: 1 tab Documented by: NATALIE Pramipexole Dihydrochloride (Pramipexole 0.5 Mg Tab) 1 mg PO BID@ [facility] Last Admin: 01/15/21 05:36 Dose: 1 mg Documented by: Admin: 01/14/21 14:21 Dose: 1 mg Documented by: Admin: 01/14/21 06:00 Dose: 1 mg Documented by: Admin: 01/13/21 14:28 Dose: 1 mg Documented by: Admin: 01/13/21 05:08 Dose: 1 mg Documented by: Admin: 01/12/21 13:32 Dose: 1 mg Documented by: ROHITH Tamsulosin HCl (Tamsulosin 0.4 Mg Cap.Er) 0.4 mg PO DAILY [facility] Last Admin: 01/15/21 09:07 Dose: 0.4 mg Documented by: Admin: 01/14/21 09:44 Dose: 0.4 mg Documented by: [email or web address] Admin: 01/13/21 09:12 Dose: 0.4 mg Documented by: YAYO - Assessment Assessment (Free Text/Narrative):: Patient is a pleasant 71 y/o male, s/p left total hip arthroplasty, POD#3. Patient had no acute events overnight. Remains hemodynamically stable. Post- operative anemia stable. Hypotension has been resolving, BP within acceptable limits. Denied lightheadedness, dizziness. Denied subjective fevers nor chills. Patient reports pain doesn't seem as well controlled today, although he has only been using 1 [place] and intermittent Toradol. Discussed adding a tapered [place] to allow for 2 tabs, as patient got too drowsy with the Percocet and Morphine. Patient denied nausea or vomiting. Has been tolerating regular diet well. Cisneros was removed this morning on POD#3. Dressing change performed on POD#2. IV Saline locked the evening of POD#1. Patient has participated in PT and OT daily. Continues to make daily improv ements in therapy. Has been ambulatory with x2 assist and FWW within room, up to 30 feet. However, fatigues quickly. Did require bed to be moved after ambulation yesterday due to fatigue. Has been doing bilateral LE exercises. Does require x2 max assist with transfers from bed to chair. Has been using the Michelle Steady lift to aid with transfers, spouse is looking into obtaining one to rent or purchase for home. Patient has been completing OT daily, although notes due to prior L LE deficiency, has been using assistive equipment for awhile and feels competent with ability to complete ADLs after the surgery. Does rely on (primary caregiver) for assistance. Patient continues to require inpatient status to allow for further physical therapy services to be safe for discharge. Additionally requiring better optimization of pain control with PO medications prior to discharge. Exam: L LE neurovascular intact. L hip dressing dry and intact. No surrounding erythema, ecchymosis, nor warmth to touch of L hip. Mild increased edema of LLE compared to RLE, but both LE with lymphedema per patients baseline. Rory hose and SCDs are applied bilaterally. Dorsiflexion: 3/5. Plantar flexion: 3/5. Plan: * Continue with daily PT and OT sessions while in the hospital. * Pain control adjusted to allow for a tappered [place] dose. * Continue to monitor post-operative vitals q4 hrs. Continue with home midodrine dose. * DVT/VTE prophylaxis: Continue with 30 mg Lovenox qd for chemical prophylaxis and bilateral SCDs for mechanical prophylaxis. * Pending patient's progress with therapy this afternoon will help decide on discharge plans. Patient goal to go home with HH, however, may be safer to go to SNF for additional rehab prior to returning home. Will re-assess after this afternoons therapy.
[2021-01-15] MEDS: Ketorolac 30 MG/ML SDV IVPUSH PRN (12:32)
[2021-01-15] MEDS ORDERED: Acetaminophen/oxyCODONE 325-5 MG Tab PO PRN (13:03)
[2021-01-15] MEDS: Melatonin 3 MG Tab PO SCH (21:28)
[2021-01-15] MEDS: Carbidopa/Levodopa 50-200 MG Tab.ER PO SCH (21:29)
[2021-01-16] MEDS: Ketorolac 30 MG/ML SDV IVPUSH PRN (04:08)
[2021-01-16] MEDS: RYTARY PO SCH ×4 (06:07→11:07)
[2021-01-16] MEDS: Midodrine 5 MG Tab PO SCH ×2 (06:08→11:08)
[2021-01-16] MEDS: Pramipexole 0.5 MG Tab PO SCH (06:09)
[2021-01-16] MEDS: Acetaminophen/HYDROcodone 325-5 MG Tab PO PRN ×2 (06:49→12:50)
[2021-01-16] MEDS: Nozin Nasal Sanitizer NASBOTH SCH (10:08)
[2021-01-16] MEDS: Docusate Sodium 100 MG Cap PO SCH (10:10)
[2021-01-16] MEDS: Tamsulosin 0.4 MG Cap.ER PO SCH (10:11)
[2021-01-16] MEDS: atorvaSTATin 20 MG Tab PO SCH (10:11)
[2021-01-16] MEDS: Gabapentin 300 MG Cap PO SCH (10:11)
[2021-01-16] MEDS: Enoxaparin 30 MG/0.3 ML Syringe SUBCUT SCH (10:12)
[2021-01-16] MEDS: buPROPion 100 MG Tab.SR PO SCH (10:12)
--- NOTE | 2021-01-16 10:50 | PCM.DCSUM1 ---
Discharge Summary - Hospital Course Brief History: Patient is a pleasant 71-year-old male, past medical history significant for Parkinson's disease and left hip osteoarthritis. Hip osteoarthritis symptoms were refractory to conservative management. Patient elected to undergo a left total hip arthroplasty. Patient tolerated surgery well with no complications. Hospital stay prolonged due to additional needs for physical therapy services and to optimize pain control with PO medications. Diagnosis: Stroke: No Modified Ronda Scale: No Symptoms at All Modified Anderson Scale Score: 0 - Discharge Data Discharge Date: 01/16/21 Discharge Disposition: Home, W Home Health Agency 06 Condition: Good - Referral to Home Health Date of Face to Face Encounter: 01/16/21 Reason for Homebound Status: great effort to go home Primary Care Physician: Analisa Jeffries MD Skilled Need: PT for strengthening of L LE and progression of ambulation abilities. OT for assistance with ADLs. SNV for post-op assessment, dressing changes - Discharge Diagnosis/Problem(s) (1) Status post total hip replacement, left SNOMED Code(s): 960872694526, [id number] ICD Code: Z96.642 - PRESENCE OF LEFT ARTIFICIAL HIP JOINT Status: Acute Current Visit: Yes (2) Postoperative anemia SNOMED Code(s): 518729242, [id number] ICD Code: D64.9 - ANEMIA, UNSPECIFIED Status: Acute Current Visit: Yes - Patient Summary/Data Operative Procedure(s) Performed: left total hip arthroplasty Consults: Consultations 01/12/21 10:27 Consult to Case Management/Excelsior Machine Operator [CONS] Routine Comment: Physician Instructions: Discharge placement post hip surgery Service(s) to be Consulted: Case Management Special Instructions: will either need home health or SNF pending progress post-operatively PT Evaluation and Treatment [CONS] Routine Please Evaluate and Treat. PT Reason for Consult: Ambulation Discharge Disposition: Home w Home Health Special Instructions: posterior hip precautions, WBAT This query below is only for informational purposes and is not editable. PT Evaluation and Treatment [CONS] Routine Please Evaluate and Treat. PT Reason for Consult: Post op Ortho Surgery Hip Pending Discharge: Yes, 2- -3 days Special Instructions: Schedule first outpatient P.T. appointment 3 - 5 days post discharge This query below is only for informational purposes and is not editable. 01/12/21 10:31 OT Evaluation and Treatment [CONS] Routine Please Evaluate and Treat. OT Reason for Consult: ADL's Special Instructions: Status post Hip Surgery This query below is only for informational purposes and is not editable. Hospital Course: Patient is a pleasant 71-year-old male, status post left total hip arthroplasty, postop day #4. No acute events over hospital stay. Patient remained hemodynamically stable. Postoperative anemia remained asymptomatic throughout st ay. Patient denied dizziness, lightheadedness, nor orthostatic hypotension with transfers. Patient denied dyspnea, subjective fevers, nor chills. Patient did experience hypotension, was asymptomatic at all times with this. Does take midodrine at home, home midodrine dose was resumed, in addition to saline boluses as needed. Hypotension did delay physical therapy progress on postop day #1. Blood pressures over the past 24 hours have remained within acceptable limits. Patient's pain has been well-controlled postoperatively. Initially utilized Percocet and Morphine, but patient was rather drowsy with this. On POD#3, transferred to a tapered Verona and Toradol regimen which provided good relief. Has only been using Verona for the past 8 hours and notes excellent relief with this. Patient has tolerated regular diet well. Denied nausea or emesis. Patient participated in PT and OT daily throughout hospital stay. PT on POD #1 delayed due to hypotension. Thereafter, patient worked with PT on transfers, ambulation, and bilateral LE exercises. Utilized Michelle Steady lift to assist with transfers. Is able to transfer without Michelle Steady, using either a x2 min- assist or x1 max-assist. With ambulation on POD#2, legs fatigued and required bed to be moved to him, as he was unable to ambulate any further. Left leg does fatigue quickly, ambulation abilities have slowly improved, but requires chair closely behind in case he fatigues and needs to sit. Patient ambulated in the hallway 30 ft with a x1 mod-assist on POD#4 without fatigue. Patient and have the house modified to be handicap accessible and feel that patient will succeed at home with home health. Have ordered a Michelle Steady lift which will arrive early next week. Has worked with OT on ADLS; from patients prior surgeries, he has most adaptive equipment he needs. Does require assistance from spouse (who is his primary caregiver) for LE ADL tasks. Per my recommendation, patient would benefit from SNF for additional rehab due to how he fatigues and requires maximum assistance with transfers. Patient and declined SNF placement at this time and elected to go home with home health referral. did perform transfer with patient from bed to chair this morning, demonstrated ability to safely transfer patient on her own. IV saline locked the evening of POD#1. Dressing changed on POD #2 and #4. Cisneros discontinued on morning of POD #3. Exam: Incision well approximated and intact, steristrips above incision. Dried drainage near inferior end of incision. No surrounding erythema, nor warmth to touch of L hip. Bilateral LE lymphedema per patients baseline. Rory hose on bilateral LEs. Dorsiflexion: 3/5. Plantar flexion: 3/5. Negative lyric's. - Patient Instructions Diet: Usual Diet as Tolerated Activity: Apply Ice, Full Weight Bearing Driving: Do Not Drive Showering/Bathing: Shower in AM Wound/Incision Care: Keep Operative Site/Wound Site Clean and Dry, Change Dressing Daily Notify Provider of: Fever, Increased Pain, Swelling and Redness, Drainage, Nausea and/or Vomiting - Discharge Plan *PRESCRIPTION DRUG MONITORING PROGRAM REVIEWED*: Yes *COPY OF PRESCRIPTION DRUG MONITORING REPORT IN PATIENT BRI: Not Applicable Prescriptions/Med Rec: Hydrocodone/Acetaminophen [Hydrocodon-Acetaminophen 5-325] 1 - 2 each PO Q6HR PRN 7 Days #40 tablet PRN Reason: Pain Home Medications: Home Meds Carbidopa/Levodopa [Rytary ER 36.25 mg-145 mg Cap] 1 tab PO TID@06,,17 05/09/19 [History] Gabapentin [Neurontin] 600 mg PO TID 05/09/19 [History] Tamsulosin [Flomax] 0.4 mg PO DAILY 05/09/19 [History] atorvaSTATin [Lipitor] 20 mg PO DAILY 05/09/19 [History] buPROPion [Wellbutrin SR] 100 mg PO DAILY 05/09/19 [History] Aspirin 81 mg PO BID 05/11/19 [History] Carbidopa/Levodopa [Carbidopa-Levo ER 50-200] 1 tab PO BEDTIME 05/11/19 [History] Carbidopa/Levodopa [Rytary ER 48.75 mg-195 mg Cap] 2 tab PO BID@05/11/19 [History] Melatonin 10 mg PO BEDTIME 05/11/19 [History] Cholecalciferol (Vitamin D3) [Vitamin D] 5,000 unit PO DAILY 02/07/20 [History] Amoxicillin 1,000 mg PO ASDIRECTED PRN 01/07/21 [History] Midodrine 5 mg PO .NOON 01/07/21 [History] [place]od[place] [address]/07/21 [History] Pramipexole Di-HCl [Mirapex] 1 mg PO BID@01/07/21 [History] Acetaminophen [Tylenol Extra Strength] 500 mg PO ASDIRECTED PRN 01/12/21 [History] Carbidopa/Levodopa [Rytary ER 48.75 mg-195 mg Cap] 1 cap DAILY@59901/12/21 [History] Docusate Sodium 100 mg ASDIRECTED PRN 01/12/21 [History] Ibuprofen [Ibu] 600 mg PO ASDIRECTED PRN 01/12/21 [History] Sennosides [Senna] 8.6 mg PO ASDIRECTED PRN 01/12/21 [History] Hydrocodone/Acetaminophen [Hydrocodon-Acetaminophen 5-325] 1 - 2 Q6HR PRN 01/16/21 [History] Hydrocodone/Acetaminophen [Hydrocodon-Acetaminophen 5-325] 1 - 2 each PO Q6HR PRN 7 Days #40 tablet 01/16/21 [Rx] Oxygen Therapy Mode: Room Air Patient Handouts: Total Hip Replacement, [id number], Preventing Problems After Surgery, Preventing Constipation After Surgery - Discharge Summary/Plan Comment DC Time >30 min.: No Discharge Summary/Plan Comment: * I have discussed SNF placement with patient and spouse as orthopedics recommendation to allow patient additional rehab to work on L LE strengthening, transfer abilities, and progress ambulation abilities prior to returning home. I believe this is the safest option; this was expressed to patient and spouse, who repeatedly declined SNF placement. Patient and spouse request to go home with home health referral, will have neighbors help as need be. Michelle Steady lift set to arrive early next week. did demonstrate ability to safely transfer patient from bed to chair by herself. * I completed home health face sheet, pulmonary function technologist has kindly made arrangements for [facility] to provide in-home care, starting tomorrow. * Pain control: [employer] is not allowing Verona to be e-prescribed. Provided patient's spouse with paper copy of pain script; 5mg-325 mg Verona, 1-2 tabs PO q6 hrs prn pain, dispense #40. Discussed the increased risk of respiratory depression with combining opioids and gabapentin; spouse expressed understanding of warning signs of respiratory depression and return precautions. * Education provided on DVT/VTE and SSIs + warning signs and return precautions. Patient and spouse expressed understanding. * Patient to take 1 aspirin BID for DVT/VTE prophylaxis * Patient to continue with Nozin spray BID * Patient to follow up with orthopedic clinic in 2 weeks for surgical follow up. Encouraged patient and spouse to reach out with any questions or concerns that arise prior to scheduled apt. - General Info Date of Service: 01/16/21 Admission Dx/Problem (Free Text: s/p left total hip arthroplasty Functional Status: Reports: Pain Controlled, Tolerating Diet, Ambulating (with FWW, x1 max assist ), Urinating - Review of Systems General: Reports: No Symptoms HEENT: Reports: No Symptoms Musculoskeletal: Reports: Leg Pain (left ), Joint Pain (left hip), Joint Swelling (bilateral LE lymphedema ) Neurological: Reports: No Symptoms Psychiatric: Reports: No Symptoms - Patient Data Vitals - Most Recent: Last Vital Signs Temp 97.6 F 01/16/21 10:21 Pulse 77 01/16/21 10:21 Resp 18 01/16/21 10:21 BP 128/67 01/16/21 10:21 Pulse Ox 97 01/16/21 10:21 Weight - Most Recent: 270 lb I&O - Last 24 hours: Intake & Output 01/15/21 01/16/21 01/16/21 22:59 06:59 14:59 Intake Total 300 Output Total 475 150 Balance 300 -475 -150 Med Orders - Current: Current Medications Acetaminophen (Acetaminophen 325 Mg Tab) 650 mg PO Q4H PRN PRN Reason: Pain/Fever Hydrocodone Bitart/Acetaminophen (Acetaminophen/Hydrocodone 325-5 Mg Tab) 1 - 2 tab PO Q4H PRN PRN Reason: Pain Last Admin: 01/16/21 06:49 Dose: 2 tab Documented by: Atorvastatin Calcium (Atorvastatin 20 Mg Tab) 20 mg PO DAILY MICHELLE Last Admin: 01/16/21 10:11 Dose: 20 mg Documented by: Bandage/Support Products (Nozin Nasal Tour Conductor) 1 applic NASBOTH BID MICHELLE Stop: 01/18/21 21:01 Last Admin: 01/16/21 10:08 Dose: 1 applic Documented by: Bupropion HCl (Bupropion 100 Mg Tab.Sr) 100 mg PO DAILY [facility] Last Admin: 01/16/21 10:12 Dose: 100 mg Documented by: Carbidopa/Levodopa (Carbidopa/Levodopa 50-200 Mg Tab.Er) 1 tab PO BEDTIME [facility] Last Admin: 01/15/21 21:29 Dose: 1 tab Documented by: Docusate Sodium (Docusate Sodium 100 Mg Cap) 100 mg PO DAILY [facility] Last Admin: 01/16/21 10:10 Dose: 100 mg Documented by: Enoxaparin Sodium (Enoxaparin 30 Mg/0.3 Ml Syringe) 30 mg SUBCUT DAILY [facility] Last Admin: 01/16/21 10:12 Dose: 30 mg Documented by: Gabapentin (Gabapentin 300 Mg Cap) 600 mg PO TID [facility] Last Admin: 01/16/21 10:11 Dose: 600 mg Documented by: Sodium Chloride (Normal Saline) 1,000 mls @ 125 mls/hr IV ASDIRECTED [facility] Last Admin: 01/13/21 09:00 Dose: 125 mls/hr Documented by: Ketorolac Tromethamine (Ketorolac 30 Mg/Ml Sdv) 30 mg IVPUSH Q8H PRN PRN Reason: Breakthrough Pain Stop: 01/18/21 16:36 Last Admin: 01/16/21 04:08 Dose: 30 mg Documented by: Magnesium Hydroxide (Magnesium Hydroxide 400 Mg/5 Ml Susp 30 Ml Cup) 30 ml PO Q6H PRN PRN Reason: Stool Softener Last Admin: 01/15/21 09:06 Dose: 30 ml Documented by: Melatonin (Melatonin 3 Mg Tab) 9 mg PO BEDTIME [facility] Last Admin: 01/15/21 21:28 Dose: 9 mg Documented by: Midodrine (Midodrine 5 Mg Tab) 5 mg PO DAILY@1200 [facility] Last Admin: 01/15/21 11:35 Dose: 5 mg Documented by: Midodrine (Midodrine 5 Mg Tab) 10 mg PO 0600 [facility] Last Admin: 01/16/21 06:08 Dose: 10 mg Documented by: Morphine Sulfate (Morphine 2 Mg/Ml Syringe) 1 mg IV Q1H PRN PRN Reason: Breakthrough Pain Last Admin: 01/12/21 12:24 Dose: 1 mg Documented by: Rytary Er 36.25 Mg- (145 Mg Ptom) 1 tab PO TID@, [facility] Last Admin: 01/16/21 06:07 Dose: 1 tab Documented by: Rytary Er 48.75 Mg- (195 Mg Ptom) 1 cap PO DAILY@0600 [facility] Last Admin: 01/16/21 06:07 Dose: 1 cap Documented by: Rytary Er 48.75 Mg- (195 Mg Ptom) 0 tab PO BID@ [facility] Last Admin: 01/15/21 17:05 Dose: 2 tab Documented by: Ondansetron HCl (Ondansetron 4 Mg/2 Ml Sdv) 4 mg IVPUSH Q6H PRN PRN Reason: Nausea/Vomiting Oxycodone/Acetaminophen (Acetaminophen/Oxycodone 325-5 Mg Tab) 1 tab PO Q4H PRN PRN Reason: Pain (severe 7-10) Pramipexole Dihydrochloride (Pramipexole 0.5 Mg Tab) 1 mg PO BID@ [facility] Last Admin: 01/16/21 06:09 Dose: 1 mg Documented by: Tamsulosin HCl (Tamsulosin 0.4 Mg Cap.Er) 0.4 mg PO DAILY [facility] Last Admin: 01/16/21 10:11 Dose: 0.4 mg Documented by: Discontinued Medications Hydrocodone Bitart/Acetaminophen (Acetaminophen/Hydrocodone 325-5 Mg Tab) 1 tab PO Q4H PRN PRN Reason: Pain Last Admin: 01/15/21 06:27 Dose: 1 tab Documented by: Bandage/Support Products (Nozin Nasal Tour Conductor) 1 applic NASBOTH ONETIME ONE Stop: 01/12/21 06:31 Last Admin: 01/12/21 06:55 Dose: 3 swab Documented by: Carbidopa/Levodopa (Carbidopa/Levodopa 50-200 Mg Tab.Er) 1 tab PO BEDTIME [facility] Dexamethasone (Dexamethasone 4 Mg/Ml Sdv) Confirm Administered Dose 4 mg .ROUTE .STK-MED ONE Stop: 01/12/21 07:28 Docusate Sodium (Docusate Sodium 100 Mg Cap) 100 mg PO DAILY [facility] Enoxaparin Sodium (Enoxaparin 30 Mg/0.3 Ml Syringe) 30 mg SUBCUT DAILY [facility] Fentanyl (Fentanyl 250 Mcg/5 Ml Sdv) Confirm Administered Dose 250 mcg .ROUTE .STK-MED ONE Stop: 01/12/21 07:29 Fentanyl (Fentanyl 250 Mcg/5 Ml Sdv) Confirm Administered Dose 250 mcg .ROUTE .STK-MED ONE Stop: 01/12/21 08:15 Glycopyrrolate (Glycopyrrolate 0.2 Mg/Ml 5 Ml Mdv) Confirm Administered Dose 1 mg .ROUTE .STK-MED ONE Stop: 01/12/21 07:28 Cefazolin Sodium/Dextrose 2 gm (/ Premix) 50 mls @ 100 mls/hr IV ONETIME ONE Stop: 01/12/21 07:59 Last Admin: 01/12/21 08:24 Dose: 100 mls/hr Documented by: Lactated Ringer's (Ringers, Lactated) 1,000 mls @ 75 mls/hr IV ASDIRECTED [facility] Last Admin: 01/12/21 06:55 Dose: 75 mls/hr Documented by: Tranexamic Acid 1,000 mg/ (Sodium Chloride) 60 mls @ 240 mls/hr IV ONETIME ONE Stop: 01/12/21 07:44 Last Admin: 01/12/21 08:26 Dose: 240 mls/hr Documented by: Lactated Ringer's (Ringers, Lactated) Confirm Administered Dose 1,000 mls @ as directed .ROUTE .STK-MED ONE Stop: 01/12/21 09:44 Cefazolin Sodium 1 gm/ Sodium (Chloride) 50 mls @ 200 mls/hr IV Q8H MICHELLE Stop: 01/13/21 02:44 Last Admin: 01/12/21 21:23 Dose: Not Given Documented by: Cefazolin Sodium/Dextrose 1 gm (/ Premix) 50 mls @ 100 mls/hr IV Q8H [facility] Stop: 01/13/21 08:29 Last Admin: 01/13/21 08:05 Dose: 100 mls/hr Documented by: Sodium Chloride (Normal Saline) 500 mls @ 500 mls/hr IV .BOLUS ONE Stop: 01/13/21 10:59 Last Admin: 01/13/21 10:07 Dose: 500 mls/hr Documented by: Midodrine (Midodrine 5 Mg Tab) 5 mg PO .NOON [facility] Morphine Sulfate (Morphine 2 Mg/Ml Syringe) 1 mg SUBCUT Q1H PRN PRN Reason: Breakthrough Pain Neostigmine Methylsulfate (Neostigmine Methylsulfate 1 Mg/Ml 5 Ml Syringe) Confirm Administered Dose 5 mg .ROUTE .STK-MED ONE Stop: 01/12/21 07:28 Non-Formulary Medication (Atorvastatin [Lipitor]) 20 mg PO DAILY [facility] Non-Formulary Medication (Carbidopa/Levodopa [Rytary Er 36.25 Mg-145 Mg Cap]) 1 tab PO TID@, [facility] Last Admin: 01/12/21 21:23 Dose: Not Given Documented by: Non-Formulary Medication (Carbidopa/Levodopa [Rytary Er 48.75 Mg-195 Mg Cap]) 1 cap PO DAILY@0600 [facility] Non-Formulary Medication (Carbidopa/Levodopa [Rytary Er 48.75 Mg-195 Mg Cap]) 2 tab PO BID@ [facility] Last Admin: 01/12/21 21:24 Dose: Not Given Documented by: Non-Formulary Medication (Gabapentin [Neurontin]) 600 mg PO TID [facility] Non-Formulary Medication (Melatonin [Melatonin]) 10 mg PO BEDTIME [facility] Non-Formulary Medication (Midodrine [Midodrine]) 10 mg PO 0600 [facility] Non-Formulary Medication (Pramipexole Di-Hcl [Mirapex]) 1 mg PO BID@ [facility] Rytary Er 48.75 Mg- (195 Mg Ptom) 0 tab PO ONETIME ONE Stop: 01/12/21 13:31 Last Admin: 01/12/21 13:31 Dose: 2 tab Documented by: Ondansetron HCl (Ondansetron 4 Mg/2 Ml Sdv) Confirm Administered Dose 4 mg .ROUTE .STK-MED ONE Stop: 01/12/21 07:28 Oxycodone/Acetaminophen (Acetaminophen/Oxycodone 325-5 Mg Tab) 1 - 2 tab PO Q4H PRN PRN Reason: Pain Last Admin: 01/13/21 08:04 Dose: 2 tab Documented by: Povidone Iodine (Povidone-Iodine 10% Soln 118.25 Ml Bottle) Confirm Administered Dose 1 ml .ROUTE .STK-MED ONE Stop: 01/12/21 06:34 Last Admin: 01/12/21 08:43 Dose: 15 ml Documented by: Propofol (Propofol 200 Mg/20 Ml Sdv) Confirm Administered Dose 200 mg .ROUTE .STK-MED ONE Stop: 01/12/21 07:28 Rocuronium [place] (Rocuronium 50 Mg/5 Ml Vial) Confirm Administered Dose 50 mg .ROUTE .STK-MED ONE Stop: 01/12/21 07:28 Rocuronium [place] (Rocuronium 50 Mg/5 Ml Vial) Confirm Administered Dose 50 mg .ROUTE .STK-MED ONE Stop: 01/12/21 09:27 Succinylcholine Chloride (Succinylcholine 200 Mg/10 Ml Mdv) Confirm Administered Dose 200 mg .ROUTE .STK-MED ONE Stop: 01/12/21 07:28 Tamsulosin HCl (Tamsulosin 0.4 Mg Cap.Er) 0.4 mg PO DAILY MICHELLE - Exam General: Reports: Alert, Oriented, Cooperative, No Acute Distress Extremities: Normal Capillary Refill, Pedal Edema (bilateral per patients baseline with lymphedema ), Leg Pain (left ), Limited Range of Motion Skin: Reports: Dry, Intact Wound/Incisions: Reports: Healing Well, Dressing Dry and Intact, No Drainage Neurological: Reports: No New Focal Deficit Psy/Mental Status: Reports: Alert, Normal Affect, Normal Mood
--- NOTE | 2021-01-28 20:51 | OR ---
DATE OF PROCEDURE: 01/12/2021 SURGEON: Yao Addison MD PREOPERATIVE DIAGNOSIS: Posttraumatic arthritis of left hip. POSTOPERATIVE DIAGNOSIS: Posttraumatic arthritis of left hip. PROCEDURE PERFORMED: Left total hip arthroplasty using Pool trabecular metal Continuum cup size 62, ML taper stem size 13.5, with a 36 +7 ceramic head. [employer]: RASHIDA Ortega ANESTHESIA: Spinal with sedation. INDICATIONS: Anthony is a very pleasant 71-year-old gentleman who sustained a serious injury several years ago resulting in a femoral fracture as well as acetabular fracture. He underwent open reduction and internal fixation of the acetabular fracture and posterior plating. He has gone on to develop severe posttraumatic arthritis with extremely limited range of motion. He now presents for left total hip arthroplasty. Risks, benefits, and potential complications were discussed. DESCRIPTION OF PROCEDURE: After adequate anesthesia was obtained, the patient was placed in lateral decubitus position and secured with the hip positioner. The left hip and leg were prepped and draped in a sterile fashion. The patient had multiple scars, and an incision was made in line with the femoral incision and carried up over the trochanter anterior by a skin bridge of several centimeters to the posterior hip incision. It was carried down through the subcutaneous tissues, and the tensor fascia was split in line with its fibers. Adhesions were dissected off the trochanter, and a Charnley retractor was placed. The patient had essentially no internal rotation due to joint contracture and deformity of the femoral head and acetabulum. The short external rotators were taken off the greater trochanter with electrocautery. The hip capsule was opened in a T- fashion and the hip eventually could be flexed and internally rotated, dislocating the hip. This revealed significant degenerative changes and deformity of the head. A femoral neck cut was made with an oscillating saw. Retractors were placed about the acetabulum. The remaining acetabular labrum was excised. The soft tissues were cleared from the central portion of the acetabulum, and this was sequentially reamed to 62 mm. A 62 mm trabecular metal cup was press-fit into position and additional fixation obtained with acetabular screws. The posterior plate screws were not encountered with reaming or placement of the acetabular components. Attention was then turned to the femur. A box osteotome was used to remove the lateral femoral neck cortex. A hand awl was placed down the canal to the level of the most proximal screw on the femoral plate. This distance was measured and found to be just adequate for placement of ML taper stem. A lateralizing reamer was utilized, and the canal was then sequentially broached up to a size 13.5. A 36 inner diameter acetabular liner was secured, and a trial reduction was then done. Increased offset stem with a +7 neck length provided excellent stability in flexion, adduction, and internal rotation, and appeared to recreate limb length. The trial stem was removed, and the final ML taper stem was press- fit into position with good fit and fill. A trial reduction was again done with a +7 neck length with very good stability. The trial head was removed. The trunnion was dried, and a 36 +7 ceramic head was tapped onto the [place] taper and reduced. This was irrigated with pulse lavage. This was followed by a dilute Betadine irrigation which was left in place for 2-1/2 minutes followed by pulse lavage irrigation. The posterior capsule was closed with #2 Ethibond. The tensor fascia was closed with #2 Ethibond in a running locking fashion. The skin was closed with 2-0 Vicryl and a running 3-0 Monocryl. Steri-Strips were applied. A sterile dressing was placed. The patient tolerated the procedure well. There were no complications. He was taken from the operating room in stable condition. Yao Addison MD /[id number] MTDD
== END 2021-01-16 13:10 | disposition home health service (06) | DRG 470 ==
LOC: JP.SDS 05:32 → JP.MS 05:32 → EDSTATUS 07:30 → JP.ICU 10:27 → JP.MS 01-13 14:17
PROVIDERS: ADMIT Specialist; ATTEND Specialist
PROC: 0SRB01A Replacement of Left Hip Joint with Metal Synthetic Substitute, Uncemented, Open Approach (ICD-10-PCS; principal; 2021-01-12)
DX: M16.12 Unilateral primary osteoarthritis, left hip (principal); D64.9 Anemia, unspecified; I95.9 Hypotension, unspecified; G20 Parkinson's disease; G47.33 Obstructive sleep apnea (adult) (pediatric); Z79.899 Other long term (current) drug therapy; Z88.2 Allergy status to sulfonamides
CPT/HCPCS: 36415; 72170; 72170-26; 85027; 86850; 86900; 86901; 94762; 97110-GP; 97116-GP; 97163-GP; 97166-GO; 97530-GP; 97535-GO; 97535-GP; A9270-GY; C1713; C1776; J0330; J0690; J1100; J1650; J1885; J2270; J2405; J2704; J2710; J3010; J3490; J7030; J7040; J7120